=== PATIENT | female | born 1950 | race Caucasian/White ===

== ENCOUNTER → 2017-06-01 | Outpatient (CLI) | payer MEDICARE ==
[~2017-06-01] MED LIST: ASPI325T; LISINOPRIL/HCTZ; MAGN500T2; PRAV40TA; PROPOXACET N; THERGRAN
[2017-06-01 09:43] LABS: MEAN CORPUSCULAR HEMOGLOBIN 28.7 pg (27.0-33.0); MEAN CORPUSCULAR HGB CONC 32.9 g/dl (32.0-36.5); MEAN CORPUSCULAR VOLUME 87.1 fl (80.0-96.0); RED CELL DISTRIBUTION WIDTH 13.3 % (11.5-14.5); WHITE BLOOD COUNT 11.2 10^3/uL (4.0-10.0)
[2017-06-01 10:17] LABS: ALBUMIN/GLOBULIN RATIO 1.18 (1.00-1.93); ALKALINE PHOSPHATASE 93 U/L (45-117); ALT/SGPT 20 U/L (12-78); ANION GAP 7 MEQ/L (8-16); AST/SGOT 13 U/L (15-37); BILIRUBIN,TOTAL 0.7 MG/DL (0.2-1.0); BLOOD UREA NITROGEN 13 MG/DL (7-18); CALCIUM LEVEL 9.9 MG/DL (8.8-10.2); CARBON DIOXIDE LEVEL 25 MEQ/L (21-32); CHLORIDE LEVEL 111 MEQ/L (98-107); CHOLESTEROL LEVEL 120 MG/DL (<200); CREATININE FOR GFR 0.75 MG/DL (0.55-1.02); GLOMERULAR FILTRATION RATE > 60.0 (>45); GLUCOSE, FASTING 106 MG/DL (80-110); POTASSIUM SERUM 4.4 MEQ/L (3.5-5.1); SODIUM LEVEL 143 MEQ/L (136-145); TOTAL PROTEIN 7.4 GM/DL (6.4-8.2); TRIGLYCERIDES LEVEL 108 MG/DL (<150)
--- NOTE | 2017-06-01 11:24 | REP ---
PA and lateral chest: Comparison is 05/26/2009. The lung smith are clear. The cardiac size is normal The patricio, mediastinum, and bony thorax are unremarkable. There is a spinal stimulator at the mid thoracic level. This appears to be a different stimulator than the one present previously. There are surgical clips in the abdominal right upper quadrant, unchanged. Impression: Negative PA and lateral chest. Signed by Anatoly Garnett MD 06/01/2017 11:15 A
--- NOTE | 2017-06-01 23:27 | ECGEPIP ---
Stationary ECG Study [facility] Test Date: 2017-06-01 Pat Name: MICHELE LYNN Department: Room: - Gender: F Member Of Technical Staff: CHRISTINE : 1950 Requested By: Oz Rossi Order Number: [id number] Reading MD: Derick Dickerson Measurements Intervals [place] Rate: 79 P: 14 ME: 150 QRS: -43 QRSD: 85 T: 15 QT: 370 QTc: 426 Interpretive Statements SINUS RHYTHM MARKED LEFT AXIS DEVIATION PATTERN CONSISTENT WITH PULMONARY DISEASE NONSPECIFIC ST-T ABNORMALITY NO PRIOR TRACING IN THE SYSTEM Electronically Signed On 06-01-2017 23:26:50 EDT by Derick Dickerson
== END ==
LOC: M LAB 08:53
PROVIDERS: ATTEND Family Medicine
DX: I10 Essential (primary) hypertension (principal)

== ENCOUNTER → 2017-08-13 | Outpatient (CLI) | payer MEDICARE ==
--- NOTE | 2017-08-13 15:55 | REP ---
Skull series: Five views: History: Head injury. Findings: Five views of the calvarium demonstrate no evidence of fracture or opaque foreign body. Hyperostosis frontalis interna is noted incidentally. This is a normal variant. The maxilla is edentulous. No facial fractures seen. Orbital margins are intact. Impression: Unremarkable skull series. Signed by Avelino Raya MD 08/13/2017 05:07 P
--- NOTE | 2017-08-13 15:57 | REP ---
Right shoulder series: Three views: History: Right shoulder pain. Findings: There is moderate glenohumeral spurring on the inferior articular margin of the humeral head and glenoid. Glenohumeral articulation is normally aligned. AC joint is normally aligned. Periarticular soft tissues are unremarkable. There is some diffuse osteopenia. Impression: Glenohumeral osteoarthritis and diffuse osteopenia. Otherwise negative. Signed by Avelino Raya MD 08/13/2017 05:08 P
== END ==
LOC: M RAD 14:16
PROVIDERS: ATTEND Family Medicine
DX: S09.90XA Unspecified injury of head, initial encounter (principal); M25.511 Pain in right shoulder; X58.XXXA Exposure to other specified factors, initial encounter; Y92.89 Other specified places as the place of occurrence of the external cause; Y93.89 Activity, other specified; Y99.8 Other external cause status

== ENCOUNTER → 2017-09-10 | Outpatient (CLI) | payer MEDICARE | LOC: M RAD 08:10 | DX: M54.5 Low back pain (principal) | CPT/HCPCS: 72110 ==

== ENCOUNTER → 2018-01-30 | Outpatient (CLI) | payer MEDICARE ==
[2018-01-30 09:23] LABS: HEMATOCRIT 34.9 % (36.0-47.0); HEMOGLOBIN 11.4 g/dl (12.0-15.5); MEAN CORPUSCULAR HEMOGLOBIN 29.3 pg (27.0-33.0); MEAN CORPUSCULAR HGB CONC 32.7 g/dl (32.0-36.5); MEAN CORPUSCULAR VOLUME 89.7 fl (80.0-96.0); PLATELET COUNT, AUTOMATED 224 10^3/uL (150-450); RED BLOOD COUNT 3.89 10^6/uL (4.00-5.40); RED CELL DISTRIBUTION WIDTH 12.5 % (11.5-14.5); WHITE BLOOD COUNT 9.4 10^3/uL (4.0-10.0)
[2018-01-30 09:42] LABS: ESTIMATED AVERAGE GLUCOSE 114 MG/DL (60-110); HEMOGLOBIN A1c 5.6 %; INR 1.03; PROTHROMBIN TIME 13.6 SECONDS (12.4-14.5)
[2018-01-30 09:58] LABS: ALBUMIN 4.6 GM/DL (3.2-5.2); ALBUMIN/GLOBULIN RATIO 1.48 (1.00-1.93); ALKALINE PHOSPHATASE 109 U/L (45-117); ALT/SGPT 18 U/L (12-78); ANION GAP 8 MEQ/L (8-16); AST/SGOT 13 U/L (7-37); BILIRUBIN,TOTAL 0.7 MG/DL (0.2-1.0); BLOOD UREA NITROGEN 56 MG/DL (7-18); CALCIUM LEVEL 9.6 MG/DL (8.8-10.2); CARBON DIOXIDE LEVEL 25 MEQ/L (21-32); CHLORIDE LEVEL 109 MEQ/L (98-107); CHOLESTEROL LEVEL 173 MG/DL (<200); CHOLESTEROL RISK RATIO 5.088 (<5); CREATININE FOR GFR 1.54 MG/DL (0.55-1.30); GLOMERULAR FILTRATION RATE 35.6 (>45); GLUCOSE, FASTING 96 MG/DL (70-100); HDL CHOLESTEROL 34 MG/DL (>40); LDL CHOLESTEROL 77.6 MG/DL (<100); NON-HDL-C 139 MG/DL; POTASSIUM SERUM 5.1 MEQ/L (3.5-5.1); SODIUM LEVEL 142 MEQ/L (136-145); TOTAL PROTEIN 7.7 GM/DL (6.4-8.2); TRIGLYCERIDES LEVEL 307 MG/DL (<150)
== END ==
LOC: M LAB 08:43
DX: I10 Essential (primary) hypertension (principal); R53.83 Other fatigue; E03.9 Hypothyroidism, unspecified
CPT/HCPCS: 71046

== ENCOUNTER → 2018-04-04 | Outpatient (CLI) | payer MEDICARE ==
[2018-04-04 08:44] LABS: HEMOGLOBIN 11.4 g/dl (12.0-15.5); MEAN CORPUSCULAR HEMOGLOBIN 29.5 pg (27.0-33.0); MEAN CORPUSCULAR HGB CONC 32.6 g/dl (32.0-36.5); MEAN CORPUSCULAR VOLUME 90.4 fl (80.0-96.0); PLATELET COUNT, AUTOMATED 243 10^3/uL (150-450); RED BLOOD COUNT 3.87 10^6/uL (4.00-5.40); RED CELL DISTRIBUTION WIDTH 12.2 % (11.5-14.5)
[2018-04-04 08:55] LABS: INR 1.05; PROTHROMBIN TIME 13.8 SECONDS (12.1-14.4)
[2018-04-04 09:12] LABS: ESTIMATED AVERAGE GLUCOSE 126 MG/DL (60-110)
[2018-04-04 09:18] LABS: ALBUMIN 4.1 GM/DL (3.2-5.2); ALBUMIN/GLOBULIN RATIO 1.17 (1.00-1.93); ALKALINE PHOSPHATASE 108 U/L (45-117); ALT/SGPT 23 U/L (12-78); ANION GAP 10 MEQ/L (8-16); AST/SGOT 11 U/L (7-37); BILIRUBIN,TOTAL 0.7 MG/DL (0.2-1.0); BLOOD UREA NITROGEN 48 MG/DL (7-18); CALCIUM LEVEL 9.3 MG/DL (8.8-10.2); CARBON DIOXIDE LEVEL 24 MEQ/L (21-32); CHLORIDE LEVEL 108 MEQ/L (98-107); CHOLESTEROL LEVEL 155 MG/DL (<200); CHOLESTEROL RISK RATIO 4.558 (<5); CREATININE FOR GFR 1.67 MG/DL (0.55-1.30); GLOMERULAR FILTRATION RATE 32.4 (>45); GLUCOSE, FASTING 111 MG/DL (70-100); HDL CHOLESTEROL 34 MG/DL (>40); NON-HDL-C 121 MG/DL; POTASSIUM SERUM 4.8 MEQ/L (3.5-5.1); SODIUM LEVEL 142 MEQ/L (136-145); TOTAL PROTEIN 7.6 GM/DL (6.4-8.2); TRIGLYCERIDES LEVEL 300 MG/DL (<150)
== END ==
LOC: M LAB 08:20
DX: Z01.812 Encounter for preprocedural laboratory examination (principal); I10 Essential (primary) hypertension; R53.83 Other fatigue
CPT/HCPCS: 84443

== ENCOUNTER → 2018-05-20 | Outpatient (CLI) | payer MEDICARE | LOC: M EKG 10:18 | DX: Z01.818 Encounter for other preprocedural examination (principal) | CPT/HCPCS: 71046 ==

== ENCOUNTER → 2018-12-27 | Outpatient (CLI) | payer MEDICARE ==
[2018-12-27 08:31] LABS: HEMOGLOBIN 10.8 g/dl (12.0-15.5); MEAN CORPUSCULAR HEMOGLOBIN 28.7 pg (27.0-33.0); MEAN CORPUSCULAR HGB CONC 31.8 g/dl (32.0-36.5); MEAN CORPUSCULAR VOLUME 90.4 fl (80.0-96.0); PLATELET COUNT, AUTOMATED 270 10^3/uL (150-450); RED BLOOD COUNT 3.76 10^6/uL (4.00-5.40); WHITE BLOOD COUNT 9.9 10^3/uL (4.0-10.0)
[2018-12-27 08:56] LABS: ALBUMIN 4.2 GM/DL (3.2-5.2); BILIRUBIN,TOTAL 0.6 MG/DL (0.2-1.0); CALCIUM LEVEL 9.1 MG/DL (8.8-10.2); CHOLESTEROL RISK RATIO 4.935 (<5); CREATININE FOR GFR 1.67 MG/DL (0.55-1.30); GLOMERULAR FILTRATION RATE 32.3 (>39); POTASSIUM SERUM 4.7 MEQ/L (3.5-5.1); THYROID STIMULATING HORMONE 1.8 uIU/ML (0.358-3.740); TOTAL PROTEIN 7.2 GM/DL (6.4-8.2)
[2018-12-27 09:17] LABS: INR 1.11; PROTHROMBIN TIME 14.4 SECONDS (12.1-14.4)
--- NOTE | 2018-12-27 09:39 | REP ---
Chest x-ray: Two views. History: Hypertension. Preop. Comparison study: May 20, 2018. Findings: A dorsal column stimulator lead is again noted in the mid thoracic spine unchanged. The lungs are well inflated and clear. Pleural angles are sharp. Heart size is normal. Pulmonary vasculature is not increased. There are surgical clips in right upper quadrant of the abdomen. Minimal degenerative changes are seen in the thoracic spine. Impression: No active disease. Dorsal column stimulator in the mid thoracic spine. Electronically Signed by Avelino Raya MD 12/27/2018 09:31 A
[2018-12-27 09:42] LABS: APPEARANCE, URINE HAZY (CLEAR); BACTERIA, URINE AUTO 3+ (NEGATIVE); BILIRUBIN, URINE AUTO NEGATIVE (NEGATIVE); BLOOD, URINE BLOOD NEGATIVE (NEGATIVE); COLOR, URINE YELLOW (YELLOW); GLUCOSE, URINE (UA) AUTO NEGATIVE (NEGATIVE); KETONE, URINE AUTO NEGATIVE (NEGATIVE); LEUKOCYTE ESTERASE, URINE AUTO 3+ (NEGATIVE); MUCUS, URINE SMALL (NEGATIVE); NITRITE, URINE AUTO NEGATIVE (NEGATIVE); PROTEIN, URINE AUTO NEGATIVE (NEGATIVE); RBC, URINE AUTO 5 /HPF (0-3); SPECIFIC GRAVITY URINE AUTO 1.016 (1.002-1.035); SQUAMOUS EPITHELIAL CELL UR AU 0 /HPF (0-6); UROBILINOGEN, URINE AUTO 0.2 mg/dL (0.0-2.0); WBC, URINE AUTO 56 /HPF (0-3)
--- NOTE | 2018-12-28 12:07 | ECGEPIP ---
Stationary ECG Study [facility] Test Date: 2018-12-27 Pat Name: MICHELE LYNN Department: Room: - Gender: F Facility Coordinator: YULIYA : 1950 Requested By: Oz Rossi Order Number: [id number] Reading MD: Fernando Vaughn Measurements Intervals [place] Rate: 70 P: 7 PA: 169 QRS: -42 QRSD: 87 T: 8 QT: 389 QTc: 421 Interpretive Statements SINUS RHYTHM Left axis deviation Nonspecific T wave abnormality Similar to tracing done 05-20-18 Electronically Signed On 12-28-2018 12:07:51 EDT by Fernando Vaughn
== END ==
LOC: M LAB 07:56
PROVIDERS: ATTEND Family Medicine
DX: Z01.812 Encounter for preprocedural laboratory examination (principal); I10 Essential (primary) hypertension; Z96.9 Presence of functional implant, unspecified; Z51.81 Encounter for therapeutic drug level monitoring

== ENCOUNTER → 2019-01-16 | Outpatient (REF) ==
[2019-01-16 08:05] LABS: HEMATOCRIT 25.1 % (36.0-47.0); MEAN CORPUSCULAR HEMOGLOBIN 29.3 pg (27.0-33.0); MEAN CORPUSCULAR HGB CONC 31.9 g/dl (32.0-36.5); MEAN CORPUSCULAR VOLUME 91.9 fl (80.0-96.0); PLATELET COUNT, AUTOMATED 298 10^3/uL (150-450); RED BLOOD COUNT 2.73 10^6/uL (4.00-5.40)
[2019-01-16 08:51] LABS: CALCIUM LEVEL 8.9 MG/DL (8.8-10.2); CREATININE FOR GFR 1.07 MG/DL (0.55-1.30); POTASSIUM SERUM 4.4 MEQ/L (3.5-5.1)
== END ==
LOC: SKLAB5 08:46
PROVIDERS: ATTEND Internal Medicine
DX: I10 Essential (primary) hypertension (principal); D64.9 Anemia, unspecified

== ENCOUNTER → 2019-01-20 | Outpatient (REF) ==
[2019-01-20 08:14] LABS: HEMATOCRIT 25.9 % (36.0-47.0); HEMOGLOBIN 8.1 g/dl (12.0-15.5); MEAN CORPUSCULAR HEMOGLOBIN 29.3 pg (27.0-33.0); MEAN CORPUSCULAR HGB CONC 31.3 g/dl (32.0-36.5); MEAN CORPUSCULAR VOLUME 93.8 fl (80.0-96.0); PLATELET COUNT, AUTOMATED 368 10^3/uL (150-450); RED BLOOD COUNT 2.76 10^6/uL (4.00-5.40)
== END ==
LOC: SKLAB5 09:26
PROVIDERS: ATTEND Internal Medicine
DX: D64.9 Anemia, unspecified (principal)

== ENCOUNTER 2019-07-23 09:05 | Emergency (ER) | payer MEDICARE ==
[~2019-07-23] VITALS: Ht 152.4 cm; Wt 75.0 kg
[2019-07-23] MEDS ORDERED: ACETAMINOPHEN TAB 650MG DOSE (2X325MG) PO ONE (09:30)
--- NOTE | 2019-07-23 10:32 | REP ---
Three views left shoulder: 07/23/2019. Indication: Left shoulder pain. Comparison: 12/27/2018. Findings: There is no acute fracture, subluxation or dislocation. Moderate glenohumeral spurring is noted inferiorly. No lytic or blastic lesions of the visualized osseous structures are present. Spinal stimulator is noted. The visualized lung is clear. Impression: No fracture or additional acute osseous abnormality detected. Electronically Signed by Jimmy Du DO 07/23/2019 10:23 A
[2019-07-23 10:57] VITALS: BP 142/74
== END 2019-07-23 11:02 | disposition home or self-care (01) ==
LOC: M ED 09:05
DX: S40.012A Contusion of left shoulder, initial encounter (principal); S43.422A Sprain of left rotator cuff capsule, initial encounter; S46.812A Strain of other muscles, fascia and tendons at shoulder and upper arm level, left arm, initial encounter; W01.198A Fall on same level from slipping, tripping and stumbling with subsequent striking against other object, initial encounter; Y92.410 Unspecified street and highway as the place of occurrence of the external cause; I10 Essential (primary) hypertension; E78.5 Hyperlipidemia, unspecified; M54.9 Dorsalgia, unspecified; Z79.899 Other long term (current) drug therapy; Z79.82 Long term (current) use of aspirin

== ENCOUNTER → 2019-11-18 | Outpatient (CLI) | payer MEDICARE ==
[2019-11-18 09:17] LABS: HEMOGLOBIN 10.7 g/dl (12.0-15.5); MEAN CORPUSCULAR HEMOGLOBIN 28.3 pg (27.0-33.0); MEAN CORPUSCULAR HGB CONC 31.5 g/dl (32.0-36.5); MEAN CORPUSCULAR VOLUME 89.9 fl (80.0-96.0); PLATELET COUNT, AUTOMATED 241 10^3/uL (150-450); RED BLOOD COUNT 3.78 10^6/uL (4.00-5.40); WHITE BLOOD COUNT 8.4 10^3/uL (4.0-10.0)
[2019-11-18 09:28] LABS: INR 1.11
[2019-11-18 09:43] LABS: HEMOGLOBIN A1c 5.6 %
[2019-11-18 09:53] LABS: BILIRUBIN,TOTAL 0.7 MG/DL (0.2-1.0); CALCIUM LEVEL 9.2 MG/DL (8.8-10.2); CHOLESTEROL RISK RATIO 4.322 (<5); CREATININE FOR GFR 2.37 MG/DL (0.55-1.30); GLOMERULAR FILTRATION RATE 21.5 (>39); POTASSIUM SERUM 5.3 MEQ/L (3.5-5.1); THYROID STIMULATING HORMONE 2.18 uIU/ML (0.358-3.740); TOTAL PROTEIN 7.2 GM/DL (6.4-8.2)
--- NOTE | 2019-11-18 10:03 | REP ---
CHEST X-RAY: Two views. HISTORY: Hypertension. COMPARISON CHEST X-RAY: December 27, 2018. FINDINGS: A dorsal column stimulator is seen in the mid thoracic spine. There are surgical clips in right upper quadrant. The lungs are symmetrically aerated and clear. Heart is not enlarged. Pulmonary vasculature is not increased. There are mild degenerative changes in the thoracic spine. IMPRESSION: Dorsal column stimulator in the mid thoracic spine. Otherwise no acute disease. Electronically Signed by Avelino Raya MD 11/18/2019 10:56 A
--- NOTE | 2019-11-20 18:06 | ECGEPIP ---
[facility] Test Date: 2019-11-18 Pat Name: MICHELE LYNN Department: Room: - Gender: Female Director Information: YULIYA : 1950 Requested By: Oz Rossi Order Number: [id number] Reading MD: Derick Dickerson Measurements Intervals [place] Rate: 70 P: 16 ID: 151 QRS: -38 QRSD: 88 T: 6 QT: 390 QTc: 422 Interpretive Statements SINUS RHYTHM MARKED LEFT AXIS DEVIATION. CONSIDER PRIOR INFERO-POSTERIOR INFARCT MODERATE T-WAVE ABNORMALITY, CONSIDER ANTERIOR ISCHEMIA Last tracing on 12/27/18 AT 8:46 No remarkable changes Electronically Signed on 11-20-2019 18:06:43 EDT by Derick Dickerson
== END ==
LOC: M LAB 08:37
PROVIDERS: ATTEND Family Medicine
DX: Z01.818 Encounter for other preprocedural examination (principal); E07.9 Disorder of thyroid, unspecified; E78.00 Pure hypercholesterolemia, unspecified; Z79.01 Long term (current) use of anticoagulants

== ENCOUNTER → 2020-02-03 | Outpatient (CLI) | payer MEDICARE ==
[2020-02-03 09:15] LABS: PLATELET COUNT, AUTOMATED 313 10^3/uL (150-450)
[2020-02-03 09:24] LABS: INR 1.14; PROTHROMBIN TIME 14.3 SECONDS (11.8-14.0)
[2020-02-03 09:25] LABS: PARTIAL THROMBOPLASTIN TIME 30.2 SECONDS (25.0-38.4)
[2020-02-03 09:32] LABS: COLLAGEN EPINEPHRINE 105 SECONDS (74-162)
[2020-02-03 09:36] LABS: CREATININE FOR GFR 2.08 MG/DL (0.55-1.30)
== END ==
LOC: M LAB 08:11
PROVIDERS: ATTEND Physical Medicine & Rehabilitation
DX: Z01.812 Encounter for preprocedural laboratory examination (principal); M47.27 Other spondylosis with radiculopathy, lumbosacral region

== ENCOUNTER → 2020-02-24 | Outpatient (CLI) | payer MEDICARE ==
[~2020-02-24] MED LIST changes: +ASPI81TA85 PO; +ATOR80TA59 PO; +CYAN500T8 PO; +FURO40TA2 PO; +LISI40TA PO; +METO200T28 PO; +TRAM1CAP15 PO; +VITAD1000T PO
--- NOTE | 2020-02-24 08:11 | REP ---
Chest x-ray: Two views. History: Annual. Comparison study: November 18, 2019. Findings: A dorsal column stimulator lead is again noted in place in the thoracic spinal column. There are clips in right upper quadrant. Minimal degenerative changes are seen in the thoracic spine. The lungs are well inflated and clear. Pleural angles are sharp. Heart is not enlarged. Pulmonary vasculature is not increased. Osteoarthritic changes are seen in the shoulders bilaterally. Impression: No active cardiopulmonary disease. Electronically Signed by Avelino Raay MD 02/24/2020 08:02 A
[2020-02-24 08:27] LABS: HEMATOCRIT 31.5 % (36.0-47.0); MEAN CORPUSCULAR HEMOGLOBIN 28.6 pg (27.0-33.0); MEAN CORPUSCULAR HGB CONC 31.7 g/dl (32.0-36.5); PLATELET COUNT, AUTOMATED 225 10^3/uL (150-450); WHITE BLOOD COUNT 8.1 10^3/uL (4.0-10.0)
[2020-02-24 08:37] LABS: INR 1.07; PROTHROMBIN TIME 13.6 SECONDS (11.8-14.0)
[2020-02-24 09:01] LABS: ALBUMIN 3.9 GM/DL (3.2-5.2); BILIRUBIN,TOTAL 0.7 MG/DL (0.2-1.0); CALCIUM LEVEL 9.1 MG/DL (8.8-10.2); CHOLESTEROL RISK RATIO 5.085 (<5); CREATININE FOR GFR 1.48 MG/DL (0.55-1.30); POTASSIUM SERUM 5.3 MEQ/L (3.5-5.1); THYROID STIMULATING HORMONE 3.07 uIU/ML (0.358-3.740); TOTAL PROTEIN 7.2 GM/DL (6.4-8.2)
[2020-02-24 10:26] LABS: HEMOGLOBIN A1c 6.1 %
--- NOTE | 2020-02-26 18:18 | ECGEPIP ---
[facility] Test Date: 2020-02-24 Pat Name: MICHELE LYNN Department: Room: - Gender: Female Pet Care Worker: EDELMIRA : 1950 Requested By: Oz Rossi Order Number: [id number] Reading MD: Derick Dickerson Measurements Intervals [place] Rate: 74 P: 10 MI: 146 QRS: -39 QRSD: 90 T: 25 QT: 378 QTc: 420 Interpretive Statements SINUS RHYTHM MARKED LEFT AXIS DEVIATION PATTERN CONSISTENT WITH PULMONARY DISEASE. CONSIDER PRIOR INFERIOR INFARCT MODERATE T-WAVE ABNORMALITY, CONSIDER ANTERIOR ISCHEMIA Compared to prior tracings(4) in the system, no significant changes Electronically Signed on 02-26-2020 18:18:01 EDT by Derick Dickerson
== END ==
LOC: M LAB 07:27
PROVIDERS: ATTEND Family Medicine
DX: Z01.818 Encounter for other preprocedural examination (principal); I10 Essential (primary) hypertension; E11.9 Type 2 diabetes mellitus without complications

== ENCOUNTER → 2020-03-04 | Outpatient (CLI) | payer MEDICARE | LOC: M LABSMTC 10:21 | PROVIDERS: ATTEND Physician Assistant | DX: Z03.818 Encounter for observation for suspected exposure to other biological agents ruled out (principal); Z11.59 Encounter for screening for other viral diseases ==

== ENCOUNTER → 2020-03-12 | Outpatient (CLI) | payer MEDICARE ==
[~2020-03-12] MED LIST changes: -ASPI81TA85 PO; +ASPI81TA86 PO; +D31000TA2 PO; +E-Z-GAS II EFFERVESCENT PACKET (SODIUM BICARB./CITRIC ACID/SIMETHICONE) As Ordered ONE; +E-Z-HD 98% w/w 340GM SUSP BTL As Ordered ONE; +E-Z-PAQUE 96% w/w SUSP 176GM BTL As Ordered ONE; +GABA600T4 PO; +KLOR20TA42 PO; +OMEP-218 PO; -VITAD1000T PO
--- NOTE | 2020-03-14 23:49 | REP ---
Examination Requested: Upper G.I. Series With KUB Reason For Exam: Abdomen pain Upper GI Air Contrast The procedure was performed by SAGE Da Silva, under the direct supervision of Dr. Dobbins. The images were reviewed with Dr. Dobbins. The electrolysis engineer film shows no organomegaly or pathological masses. The intestinal gas pattern appears normal. There is a dorsal column stimulator. There is a fusion of L4 and L5. There are surgical clips in the right upper quadrant. Liquid barium and gas producing crystals were given in the erect position as well as liquid barium in the prone oblique position in order to perform a double contrast upper GI examination. The oral and pharyngeal stages of deglutition were unremarkable. Esophageal transport is efficient and there is no esophagitis, stricture, or mucosal ring noted. However tertiary waves were visualized during the exam There is hiatal hernia. Gastroesophageal reflux was not visualized during this exam. The stomach story are normally outlined. The rugal folds are smooth and regular. There is no gastritis, neoplasm, ulcer disease noted. The duodenal story are normally outlined. The mucosal folds are smooth and regular. There is no duodenitis, peptic ulcer disease, or neoplasm noted. The visualized portion of the proximal small bowel appears normal in course and caliber. Impression: 1. Tertiary waves were visualized during this exam. 2. Small hiatal hernia. 0.7 minutes of fluoroscopy time was utilized for this procedure. Some fluoroscopic images are performed with last image hold technology. These images require no additional radiation. Reviewed by SAGE Mcallister 03/12/2020 04:07 P Electronically Signed by Anatoly Dobbins MD 03/14/2020 11:40 P
== END ==
LOC: M RAD 07:47
PROVIDERS: ATTEND Family Medicine
DX: R10.13 Epigastric pain (principal); D64.9 Anemia, unspecified; K27.9 Peptic ulcer, site unspecified, unspecified as acute or chronic, without hemorrhage or perforation; K44.9 Diaphragmatic hernia without obstruction or gangrene

== ENCOUNTER → 2020-03-18 | Outpatient (CLI) | payer MEDICARE ==
[~2020-03-18] MED LIST changes: -E-Z-GAS II EFFERVESCENT PACKET (SODIUM BICARB./CITRIC ACID/SIMETHICONE) As Ordered ONE; -E-Z-HD 98% w/w 340GM SUSP BTL As Ordered ONE; -E-Z-PAQUE 96% w/w SUSP 176GM BTL As Ordered ONE
--- NOTE | 2020-03-18 10:41 | REPMRS ---
Patient History The patient states she has not had a clinical breast exam in over a year. Patient is postmenopausal. No known family history of cancer. 3D TOMOSYNTHESIS WAS PERFORMED. [facility] for [facility].3%. ALEXA Potts. Digital Woman Screen Mammo: March 18, 2020 - Exam #: [id number] Bilateral CC and MLO view(s) were taken. Technologist: Soraya Faria, Technologist FINDINGS: The breast tissue is heterogeneously dense. This may lower the sensitivity of mammography. There is a moderate amount of residual fibroglandular tissue which is fairly symmetric. There is no dominant mass, areas of architectural distortion, or clustered microcalcification typical of malignancy. Large coarse benign appearing calcifications are present. Assessment: BI-RADS/ACR category 1 mammogram. Negative Mammogram. Recommendation Routine screening mammogram in 1 year (for women over age 40). This mammogram was interpreted with the aid of an FDA-approved computer-aided dectection system. Electronically Signed By: Anatoly Dobbins MD 03/18/20 [id number]
== END ==
LOC: M WHC 09:08
PROVIDERS: ATTEND Family Medicine
DX: Z12.31 Encounter for screening mammogram for malignant neoplasm of breast (principal); Z78.0 Asymptomatic menopausal state

== ENCOUNTER 2020-04-21 06:58 | Day surgery (SDC) | payer MEDICARE ==
[~2020-04-21] VITALS: Ht 152.4 cm; Wt 86.7 kg
[~2020-04-21 06:58] MED LIST changes: -GABA600T4 PO; -KLOR20TA42 PO; -OMEP-218 PO
[2020-04-21] MEDS ORDERED: NS 1,000 ML IV ONE (07:30)
[2020-04-21] MEDS ORDERED: KLOR20TA42 PO (07:55)
[2020-04-21] MEDS ORDERED: OMEP-218 PO (07:55)
[2020-04-21] MEDS ORDERED: GABA600T4 PO (07:55)
[2020-04-21] MEDS ORDERED: LIDOCAINE 2% 100MG/5ML SDV (FOR ANES.) As Ordered ONE (08:02)
[2020-04-21] MEDS ORDERED: propofoL 200 MG/20 ML VIAL As Ordered ONE ×2 (08:02→08:38)
[2020-04-21 08:45] VITALS: BP 117/55
--- NOTE | 2020-06-28 14:00 | ROOR ---
THIS EXAM WAS SENT IN ERROR
--- NOTE | 2020-06-28 14:01 | ROOR ---
THIS EXAM WAS SENT IN ERROR
--- NOTE | 2020-06-28 14:01 | ROOR ---
Patient Name: Wagner Benjamin Procedure Date: 04/21/2020 7:31 AM Date of : 1950 Age: 69 Room: [facility] Gender: Female Note Status: Heel Brusher Override Procedure: Upper Endoscopy + Biopsies Indications: Iron deficiency anemia, Unexplained iron deficiency anemia Providers: Levy Hewitt MD Referring MD: KAMRYN KASPER MD Requesting Provider: Medicines: Monitored Anesthesia Care Complications: No immediate complications. Procedure: Pre-Anesthesia Assessment: - The heart rate, respiratory rate, oxygen saturations, blood pressure, adequacy of pulmonary ventilation, and response to care were monitored throughout the procedure. The Endoscope was introduced through the mouth, and advanced to the second part of duodenum. The upper GI endoscopy was accomplished without difficulty. The patient tolerated the procedure well. Findings: The Z-line was variable and was found 40 cm from the incisors. Diffuse mildly erythematous mucosa without bleeding was found in the gastric antrum. Biopsies were taken with a cold forceps for Helicobacter pylori testing. The exam of the duodenum was otherwise normal. Biopsies for histology were taken with a cold forceps in the first portion of the duodenum for evaluation of celiac disease. The exam was otherwise without abnormality. Impression: - Z-line variable, 40 cm from the incisors. - Erythematous mucosa in the antrum. Biopsied. - The examination was otherwise normal. - Biopsies were taken with a cold forceps for evaluation of celiac disease. - The examination was otherwise normal. Recommendation: - Patient has a contact number available for emergencies. The signs and symptoms of potential delayed complications were discussed with the patient. Return to normal activities tomorrow. Written discharge instructions were provided to the patient. - High fiber diet. - Discharge patient to home. - Follow an antireflux regimen. - Continue present medications. - Await pathology results. - Telephone GI clinic for pathology results in 1 week. - Return to referring physician. - Repeat upper endoscopy for surveillance based on pathology results. - The findings and recommendations were discussed with the patient. Levy Hewitt MD Levy Hewitt MD 04/21/2020 8:14:13 AM Number of Addenda: 0 Note Initiated On: 04/21/2020 7:31 AM Estimated Blood Loss: Estimated blood loss: none.
--- NOTE | 2020-06-28 14:01 | ROOR ---
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 Procedure: Pre-Anesthesia Assessment: - The heart rate, respiratory rate, oxygen saturations, blood pressure, adequacy of pulmonary ventilation, and response to care were monitored throughout the procedure. The Colonoscope was introduced through the anus and advanced to the cecum, identified by appendiceal orifice and ileocecal valve. The colonoscopy was performed without difficulty. The patient tolerated the procedure well. The quality of the bowel preparation was good. Findings: The perianal and digital rectal examinations were normal. Non-bleeding internal hemorrhoids were found during retroflexion. The hemorrhoids were small and Grade I (internal hemorrhoids that do not prolapse). No other significant abnormalities were identified in a careful examination of the remainder of the colon. The exam was otherwise without abnormality on direct and retroflexion views. Impression: - Non-bleeding internal hemorrhoids. - The examination was otherwise normal on direct and retroflexion views. - No specimens collected. - The exam was otherwise normal to the cecum. Recommendation: - Patient has a contact number available for emergencies. The signs and symptoms of potential delayed complications were discussed with the patient. Return to normal activities tomorrow. Written discharge instructions were provided to the patient. - High fiber diet. - Discharge patient to home. - Continue present medications. - Repeat colonoscopy for symptoms only. - Return to referring physician. - The findings and recommendations were discussed with the patient. Levy Hewitt MD Levy Hewitt MD 04/21/2020 8:27:44 AM Electronically signed by Levy Hewitt MD Number of Addenda: 0 Note Initiated On: 04/21/2020 7:32 AM Estimated Blood Loss: Estimated blood loss: none.
--- NOTE | 2020-06-28 14:01 | ROOR ---
Patient Name: Wagner Benjamin Procedure Date: 04/21/2020 7:32 AM Date of : 1950 Age: 69 Room: [facility] Gender: Female Note Status: Claims Director Override Procedure: Total Colonoscopy to Cecum Indications: Unexplained iron deficiency anemia Providers: Levy Hewitt MD Referring MD: KAMRYN KASPER MD Requesting Provider: Medicines: Monitored Anesthesia Care Complications: No immediate complications. Procedure: Pre-Anesthesia Assessment: - The heart rate, respiratory rate, oxygen saturations, blood pressure, adequacy of pulmonary ventilation, and response to care were monitored throughout the procedure. The Colonoscope was introduced through the anus and advanced to the cecum, identified by appendiceal orifice and ileocecal valve. The colonoscopy was performed without difficulty. The patient tolerated the procedure well. The quality of the bowel preparation was good. Findings: The perianal and digital rectal examinations were normal. Non-bleeding internal hemorrhoids were found during retroflexion. The hemorrhoids were small and Grade I (internal hemorrhoids that do not prolapse). No other significant abnormalities were identified in a careful examination of the remainder of the colon. The exam was otherwise without abnormality on direct and retroflexion views. Impression: - Non-bleeding internal hemorrhoids. - The examination was otherwise normal on direct and retroflexion views. - No specimens collected. - The exam was otherwise normal to the cecum. Recommendation: - Patient has a contact number available for emergencies. The signs and symptoms of potential delayed complications were discussed with the patient. Return to normal activities tomorrow. Written discharge instructions were provided to the patient. - High fiber diet. - Discharge patient to home. - Continue present medications. - Repeat colonoscopy for symptoms only. - Return to referring physician. - The findings and recommendations were discussed with the patient. Levy Hewitt MD Levy Hewitt MD 04/21/2020 8:27:44 AM Electronically signed by Levy Hewitt MD Number of Addenda: 0 Note Initiated On: 04/21/2020 7:32 AM Estimated Blood Loss: Estimated blood loss: none.
== END 2020-04-21 08:58 | disposition home or self-care (01) ==
LOC: M OPP 06:58
PROVIDERS: ATTEND Internal Medicine Gastroenterology
DX: K64.0 First degree hemorrhoids (principal); D64.9 Anemia, unspecified; K22.8 Other specified diseases of esophagus; K31.89 Other diseases of stomach and duodenum; I10 Essential (primary) hypertension; Z79.899 Other long term (current) drug therapy

== ENCOUNTER → 2020-05-20 | Outpatient (CLI) | payer MEDICARE ==
[~2020-05-20] MED LIST changes: +GABA600T4 PO; +KLOR20TA42 PO; +OMEP-218 PO
== END ==
LOC: M LAB 07:51
PROVIDERS: ATTEND Internal Medicine Gastroenterology
DX: D64.9 Anemia, unspecified (principal)

== ENCOUNTER → 2020-06-02 | Outpatient (CLI) | payer MEDICARE | LOC: M LABSMTC 09:31 | PROVIDERS: ATTEND Physical Medicine & Rehabilitation | DX: Z01.812 Encounter for preprocedural laboratory examination (principal); Z20.828 Contact with and (suspected) exposure to other viral communicable diseases ==

== ENCOUNTER → 2020-08-19 | Outpatient (CLI) | payer MEDICARE ==
[~2020-08-19] MED LIST changes: +CYAN500T14 PO; -CYAN500T8 PO
[2020-08-19 09:05] LABS: HEMATOCRIT 33.8 % (36.0-47.0); HEMOGLOBIN 10.1 g/dl (12.0-15.5); MEAN CORPUSCULAR HEMOGLOBIN 26.4 pg (27.0-33.0); MEAN CORPUSCULAR HGB CONC 29.9 g/dl (32.0-36.5); MEAN CORPUSCULAR VOLUME 88.3 fl (80.0-96.0); PLATELET COUNT, AUTOMATED 331 10^3/uL (150-450); RED BLOOD COUNT 3.83 10^6/uL (4.00-5.40); WHITE BLOOD COUNT 6.3 10^3/uL (4.0-10.0)
[2020-08-19 09:34] LABS: ALBUMIN 3.8 GM/DL (3.2-5.2); BILIRUBIN,TOTAL 0.6 MG/DL (0.2-1.0); CHOLESTEROL RISK RATIO 5.962 (<5); CREATININE FOR GFR 1.82 MG/DL (0.55-1.30); GLOMERULAR FILTRATION RATE 29.2 (>39); POTASSIUM SERUM 5.2 MEQ/L (3.5-5.1); THYROID STIMULATING HORMONE 3.44 uIU/ML (0.358-3.740)
[2020-08-19 09:50] LABS: TOTAL 25(OH) VITAMIN D 25.2 NG/ML (30.0-100.0)
[2020-08-19 09:53] LABS: HEMOGLOBIN A1c 5.9 %
== END ==
LOC: M LAB 08:00
PROVIDERS: ATTEND Family Medicine
DX: E03.9 Hypothyroidism, unspecified (principal); R53.83 Other fatigue; Z79.899 Other long term (current) drug therapy

== ENCOUNTER → 2021-04-04 | Outpatient (CLI) | payer MEDICARE ==
[~2021-04-04] MED LIST changes: -LISI40TA PO; +LISI40TA4 PO
[2021-04-04 09:30] LABS: INR 1.08; PROTHROMBIN TIME 14.4 SECONDS (12.7-14.5)
[2021-04-04 09:31] LABS: PARTIAL THROMBOPLASTIN TIME 27.4 SECONDS (25.9-37.0)
[2021-04-04 09:33] LABS: COLLAGEN EPINEPHRINE 126 SECONDS (74-162); PLATELET COUNT, AUTOMATED 304 10^3/uL (150-450)
== END ==
LOC: M LAB 08:42
PROVIDERS: ATTEND Physician Assistant
DX: M47.27 Other spondylosis with radiculopathy, lumbosacral region (principal)

== ENCOUNTER → 2021-04-20 | Outpatient (CLI) | payer MEDICARE ==
[2021-04-20 08:17] LABS: HEMATOCRIT 29.8 % (36.0-47.0); MEAN CORPUSCULAR HEMOGLOBIN 25.7 pg (27.0-33.0); MEAN CORPUSCULAR HGB CONC 30.2 g/dl (32.0-36.5); MEAN CORPUSCULAR VOLUME 85.1 fl (80.0-96.0); PLATELET COUNT, AUTOMATED 274 10^3/uL (150-450); WHITE BLOOD COUNT 8.3 10^3/uL (4.0-10.0)
[2021-04-20 08:52] LABS: ALBUMIN 3.7 GM/DL (3.2-5.2); BILIRUBIN,TOTAL 0.6 MG/DL (0.2-1.0); CALCIUM LEVEL 8.8 MG/DL (8.8-10.2); CHOLESTEROL RISK RATIO 4.225 (<5); CREATININE FOR GFR 1.41 MG/DL (0.55-1.30); POTASSIUM SERUM 4.5 MEQ/L (3.5-5.1); THYROID STIMULATING HORMONE 0.649 uIU/ML (0.358-3.740); TOTAL PROTEIN 6.5 GM/DL (6.4-8.2)
[2021-04-20 09:07] LABS: TOTAL 25(OH) VITAMIN D 33.4 NG/ML (30.0-100.0)
== END ==
LOC: M LAB 07:26
PROVIDERS: ATTEND Family Medicine
DX: I10 Essential (primary) hypertension (principal)

== ENCOUNTER → 2021-05-20 | Outpatient (CLI) | payer MEDICARE ==
[~2021-05-20] MED LIST changes: -KLOR20TA42 PO; +POTA-141 PO
[2021-05-20 09:40] LABS: HEMATOCRIT 29.2 % (36.0-47.0); HEMOGLOBIN 8.7 g/dl (12.0-15.5); MEAN CORPUSCULAR HEMOGLOBIN 24.4 pg (27.0-33.0); MEAN CORPUSCULAR HGB CONC 29.8 g/dl (32.0-36.5); PLATELET COUNT, AUTOMATED 325 10^3/uL (150-450); RED BLOOD COUNT 3.56 10^6/uL (4.00-5.40); WHITE BLOOD COUNT 10.6 10^3/uL (4.0-10.0)
--- NOTE | 2021-05-20 09:40 | REP ---
INDICATION: HTN *LABS 1ST, EKG 2ND, XRY 3RD*. COMPARISON: 02/24/2020 TECHNIQUE: PA and lateral FINDINGS: The superior mediastinal structures are midline. The cardiac silhouette is unremarkable in size, shape, and position. The diaphragmatic surfaces of the lungs are regular, and the costophrenic angles are clear. The pulmonary smith are clear. The imaged osseous structures are intact. IMPRESSION: There is no acute cardiopulmonary disease. No change from the prior exam <Electronically signed by Benedict Davila > 05/20/21 0919
[2021-05-20 09:56] LABS: INR 1.04
[2021-05-20 10:15] LABS: ALBUMIN 3.5 GM/DL (3.2-5.2); BILIRUBIN,TOTAL 0.8 MG/DL (0.2-1.0); CALCIUM LEVEL 8.4 MG/DL (8.8-10.2); CHOLESTEROL RISK RATIO 5.451 (<5); CREATININE FOR GFR 1.76 MG/DL (0.55-1.30); GLOMERULAR FILTRATION RATE 30.2 (>39); POTASSIUM SERUM 5.3 MEQ/L (3.5-5.1); THYROID STIMULATING HORMONE 0.485 uIU/ML (0.358-3.740); TOTAL PROTEIN 6.7 GM/DL (6.4-8.2)
[2021-05-20 12:07] LABS: HEMOGLOBIN A1c 6.3 %
--- NOTE | 2021-05-20 19:20 | ECGEPIP ---
[facility] Test Date: 2021-05-20 Pat Name: MICHELE LYNN Department: Room: - Gender: Female Flight Test Engineer: magaly : 1950 Requested By: Oz Rossi Order Number: [id number] Reading MD: An Morgan Measurements Intervals [place] Rate: 71 P: 22 [place]: 116 QRS: -29 QRSD: 80 T: 22 QT: 408 QTc: 443 Interpretive Statements Normal sinus rhythm Left axis deviation ST & T wave abnormality, consider anterior ischemia No change compared to prior tracings (last 02/24/20) Electronically Signed on 05-20-2021 19:20:10 EDT by An Morgan
== END ==
LOC: M LAB 08:36
PROVIDERS: ATTEND Family Medicine
DX: Z01.818 Encounter for other preprocedural examination (principal); E11.9 Type 2 diabetes mellitus without complications; I10 Essential (primary) hypertension

== ENCOUNTER → 2021-06-06 | Outpatient (CLI) | payer MEDICARE ==
[~2021-06-06] MED LIST changes: +E-Z-GAS II EFFERVESCENT PACKET (SODIUM BICARB./CITRIC ACID/SIMETHICONE) As Ordered ONE; +E-Z-HD 98% w/w 340GM SUSP BTL As Ordered ONE; +E-Z-PAQUE 96% w/w SUSP 176GM BTL As Ordered ONE
--- NOTE | 2021-06-06 16:05 | REP ---
INDICATION: ANEMIA. COMPARISON: None. TECHNIQUE: The procedure was performed under the direct supervision of Dr. Raya. The images were reviewed with Dr. Raya. Liquid barium and gas producing crystals were given in the erect position as well as liquid barium in the prone oblique position in order to perform a double contrast upper GI examination. A combination of fluoroscopy, spot films and last image hold technology was utilized. 1.6 minutes of fluoro time was utilized for this procedure. FINDINGS: The back roll lathe operator film shows no organomegaly or pathological masses. The intestinal gas pattern is non-specific. There are surgical clips noted in the right upper quadrant. There is a fusion of L4 and L5. There is a dorsal column stimulator in place with the power pack overlying the left pelvis. The oral and pharyngeal stages of deglutition are unremarkable. During esophageal transport are tertiary waves demonstrated. There is no esophagitis, stricture, mucosal ring or hiatal hernia. Gastroesophageal reflux is not demonstrated on this examination. The stomach story are normally outlined. The rugal folds are smooth and regular. There is no gastritis neoplasm or ulcer disease. In the post bulbar duodenum there is deformity and narrowing with possible ulcers. The visualized portion of the proximal small bowel appears normal in course and caliber. IMPRESSION: 1. Tertiary waves. 2. Hiatal hernia. 3. In the post bulbar duodenum there is deformity and narrowing with possible ulcers. <Electronically signed by Kenroy Mancuso > 06/06/21 1549 <Electronically signed by Lucas Raya > 06/06/21 1606
== END ==
LOC: M RAD 07:20
PROVIDERS: ATTEND Family Medicine
DX: D64.9 Anemia, unspecified (principal); R10.9 Unspecified abdominal pain; K27.9 Peptic ulcer, site unspecified, unspecified as acute or chronic, without hemorrhage or perforation

== ENCOUNTER → 2021-07-08 | Outpatient (CLI) | payer MEDICARE ==
[~2021-07-08] MED LIST changes: -E-Z-GAS II EFFERVESCENT PACKET (SODIUM BICARB./CITRIC ACID/SIMETHICONE) As Ordered ONE; -E-Z-HD 98% w/w 340GM SUSP BTL As Ordered ONE; -E-Z-PAQUE 96% w/w SUSP 176GM BTL As Ordered ONE
[2021-07-08 10:22] LABS: HEMATOCRIT 31.7 % (36.0-47.0); HEMOGLOBIN 9.2 g/dl (12.0-15.5); MEAN CORPUSCULAR HEMOGLOBIN 23.4 pg (27.0-33.0); MEAN CORPUSCULAR VOLUME 80.7 fl (80.0-96.0); PLATELET COUNT, AUTOMATED 317 10^3/uL (150-450); RED BLOOD COUNT 3.93 10^6/uL (4.00-5.40); WHITE BLOOD COUNT 11.9 10^3/uL (4.0-10.0)
[2021-07-08 11:05] LABS: ALBUMIN 3.6 GM/DL (3.2-5.2); BILIRUBIN,TOTAL 0.4 MG/DL (0.2-1.0); CALCIUM LEVEL 9.1 MG/DL (8.8-10.2); CREATININE FOR GFR 1.63 MG/DL (0.55-1.30); PERCENT SATURATION 7.3 % (13.2-45.0); POTASSIUM SERUM 5.7 MEQ/L (3.5-5.1); THYROID STIMULATING HORMONE 0.911 uIU/ML (0.358-3.740); TOTAL PROTEIN 6.8 GM/DL (6.4-8.2)
[2021-07-08 11:19] LABS: HEMOGLOBIN A1c 5.9 %
== END ==
LOC: M LAB 09:38
PROVIDERS: ATTEND Family Medicine
DX: D64.9 Anemia, unspecified (principal)

== ENCOUNTER → 2021-07-30 | Outpatient (CLI) | payer MEDICARE ==
[~2021-07-30] MED LIST changes: +ASPI81TA26 PO; +METO1TAB7 PO
== END ==
LOC: M LABSMTC 09:22
PROVIDERS: ATTEND Anesthesiology
DX: Z11.52 Encounter for screening for COVID-19 (principal); Z20.828 Contact with and (suspected) exposure to other viral communicable diseases

== ENCOUNTER 2021-08-03 09:47 | Day surgery (SDC) | payer MEDICARE ==
[~2021-08-03] VITALS: Ht 152.4 cm; Wt 79.3 kg
[~2021-08-03 09:47] MED LIST changes: +NS 1,000 ML IV ONE; +OMEP-173 PO; -OMEP-218 PO
[2021-08-03] MEDS ORDERED: propofoL 200 MG/20 ML VIAL As Ordered ONE (10:01)
[2021-08-03] MEDS ORDERED: fentaNYL 100 MCG/2 ML INJECTION As Ordered ONE (10:01)
[2021-08-03] MEDS ORDERED: LIDOCAINE 2% 100MG/5ML SDV (FOR ANES.) As Ordered ONE (10:01)
[2021-08-03] MEDS ORDERED: hydrALAZINE 20MG/ML 1ML VIAL (J0360 PER 20MG) As Ordered ONE (11:30)
[2021-08-03 12:05] VITALS: BP 176/86
== END 2021-08-03 12:06 | disposition home or self-care (01) ==
LOC: M OPP 09:47
PROVIDERS: ATTEND Internal Medicine Gastroenterology
DX: D50.9 Iron deficiency anemia, unspecified (principal); R10.13 Epigastric pain; R93.3 Abnormal findings on diagnostic imaging of other parts of digestive tract; I10 Essential (primary) hypertension; E78.5 Hyperlipidemia, unspecified; Z79.82 Long term (current) use of aspirin; Z79.899 Other long term (current) drug therapy
CPT/HCPCS: 43239; 88305; J0360; J3010

== ENCOUNTER → 2021-08-05 | Outpatient (CLI) | payer MEDICARE ==
[~2021-08-05] MED LIST changes: -NS 1,000 ML IV ONE; -OMEP-173 PO; +OMEP-218 PO
== END ==
LOC: M LABSMTC 08:58
PROVIDERS: ATTEND Anesthesiology
DX: Z01.812 Encounter for preprocedural laboratory examination (principal); Z20.822 Contact with and (suspected) exposure to COVID-19

== ENCOUNTER 2021-08-10 12:20 | Day surgery (SDC) | payer MEDICARE ==
[~2021-08-10] VITALS: Ht 152.4 cm; Wt 82.1 kg
[~2021-08-10 12:20] MED LIST changes: +LIDOCAINE 2% 100MG/5ML SDV (FOR ANES.) As Ordered ONE; +NS 1,000 ML IV ONE; +OMEP-173 PO; -OMEP-218 PO; +propofoL 200 MG/20 ML VIAL As Ordered ONE
[2021-08-10 14:35] VITALS: BP 163/70
== END 2021-08-10 14:55 | disposition home or self-care (01) ==
LOC: M OPP 12:20
PROVIDERS: ATTEND Internal Medicine Gastroenterology
DX: K26.9 Duodenal ulcer, unspecified as acute or chronic, without hemorrhage or perforation (principal); K25.9 Gastric ulcer, unspecified as acute or chronic, without hemorrhage or perforation; R10.13 Epigastric pain; R93.3 Abnormal findings on diagnostic imaging of other parts of digestive tract; D64.9 Anemia, unspecified; Z79.82 Long term (current) use of aspirin; Z79.899 Other long term (current) drug therapy

== ENCOUNTER 2021-08-12 16:05 | Emergency (ER) | payer MEDICARE ==
[~2021-08-12] VITALS: Ht 152.4 cm; Wt 81.0 kg
[~2021-08-12 16:05] MED LIST changes: -CARA1TAB6 PO; -ISOVUE-370 76% 100ML VIAL ONE; -PEPC1TAB5 PO
[2021-08-13] MEDS ORDERED: GI COCKTAIL 50ML BTL(HYOSCYAMINE/MAALOX/LIDOCAINE VISCOUS)(1:3:1) PO ONE (02:05)
[2021-08-13] MEDS ORDERED: PERCOCET 5MG/325MG TAB PO ONE (02:50)
[2021-08-13] MEDS ORDERED: CARA1TAB6 PO (04:28)
[2021-08-13] MEDS ORDERED: PEPC1TAB5 PO (04:28)
[2021-08-13] MEDS ORDERED: FAMOTIDINE 20 MG TAB PO ONE (04:30)
[2021-08-13] MEDS ORDERED: SUCRALFATE 1 GM TAB PO ONE (04:30)
[2021-08-13 04:33] VITALS: BP 178/84
== END 2021-08-13 04:46 | disposition home or self-care (01) ==
LOC: M ED 16:05
DX: K27.9 Peptic ulcer, site unspecified, unspecified as acute or chronic, without hemorrhage or perforation (principal); D64.9 Anemia, unspecified; R10.9 Unspecified abdominal pain; R93.89 Abnormal findings on diagnostic imaging of other specified body structures; Z79.82 Long term (current) use of aspirin; Z79.899 Other long term (current) drug therapy
CPT/HCPCS: 36415; 74177; 80053; 85025; 99284; Q9967

== ENCOUNTER → 2021-08-12 | Outpatient (CLI) | payer MEDICARE ==
[~2021-08-12] MED LIST changes: +CARA1TAB6 PO; -LIDOCAINE 2% 100MG/5ML SDV (FOR ANES.) As Ordered ONE; -NS 1,000 ML IV ONE; -OMEP-173 PO; +OMEP-218 PO; +PEPC1TAB5 PO; -propofoL 200 MG/20 ML VIAL As Ordered ONE
[2021-08-12 09:08] LABS: BASO # 0.1 10^3/uL (0.0-0.2); BASO % 0.8 % (0.0-1.0); EOS # 0.4 10^3/uL (0.0-0.5); EOS % 4.8 % (0.0-3.0); HEMATOCRIT 31.1 % (36.0-47.0); HEMOGLOBIN 9.1 g/dl (12.0-15.5); LYMPH # 1.7 10^3/uL (1.5-5.0); LYMPH % 20.3 % (24.0-44.0); MEAN CORPUSCULAR HEMOGLOBIN 23.2 pg (27.0-33.0); MEAN CORPUSCULAR HGB CONC 29.3 g/dl (32.0-36.5); MEAN CORPUSCULAR VOLUME 79.3 fl (80.0-96.0); MONO # 0.6 10^3/uL (0.0-0.8); MONO % 7.4 % (2.0-8.0); NEUTROPHILS # 5.5 10^3/uL (1.5-8.5); NEUTROPHILS % 66.1 % (36.0-66.0); PLATELET COUNT, AUTOMATED 294 10^3/uL (150-450); RED BLOOD COUNT 3.92 10^6/uL (4.00-5.40); WHITE BLOOD COUNT 8.3 10^3/uL (4.0-10.0)
[2021-08-12 09:29] LABS: ALBUMIN 3.5 GM/DL (3.2-5.2); BILIRUBIN,TOTAL 0.4 MG/DL (0.2-1.0); CALCIUM LEVEL 9.3 MG/DL (8.8-10.2); CREATININE FOR GFR 1.36 MG/DL (0.55-1.30); GLOMERULAR FILTRATION RATE 40.7 (>39); POTASSIUM SERUM 5.5 MEQ/L (3.5-5.1); TOTAL PROTEIN 6.8 GM/DL (6.4-8.2)
== END ==
LOC: M LAB 08:33
PROVIDERS: ATTEND Internal Medicine Gastroenterology
DX: D64.9 Anemia, unspecified (principal); R10.9 Unspecified abdominal pain; R93.89 Abnormal findings on diagnostic imaging of other specified body structures

== ENCOUNTER → 2021-08-12 | Outpatient (CLI) | payer MEDICARE ==
[~2021-08-12] MED LIST changes: +ISOVUE-370 76% 100ML VIAL ONE; +OMEP-173 PO; -OMEP-218 PO
== END ==
LOC: M PLAIMG 12:19
PROVIDERS: ATTEND Internal Medicine Gastroenterology
DX: D64.9 Anemia, unspecified (principal); R10.9 Unspecified abdominal pain; R93.89 Abnormal findings on diagnostic imaging of other specified body structures

== ENCOUNTER → 2021-09-01 | Outpatient (CLI) | payer MEDICARE ==
[~2021-09-01] MED LIST changes: +CARA1TAB6 PO; -OMEP-173 PO; +OMEP-218 PO; +PEPC1TAB5 PO
[2021-09-01 08:51] LABS: HEMATOCRIT 33.2 % (36.0-47.0); HEMOGLOBIN 9.7 g/dl (12.0-15.5); MEAN CORPUSCULAR HEMOGLOBIN 23.5 pg (27.0-33.0); MEAN CORPUSCULAR HGB CONC 29.2 g/dl (32.0-36.5); MEAN CORPUSCULAR VOLUME 80.4 fl (80.0-96.0); PLATELET COUNT, AUTOMATED 309 10^3/uL (150-450); RED BLOOD COUNT 4.13 10^6/uL (4.00-5.40); WHITE BLOOD COUNT 6.9 10^3/uL (4.0-10.0)
[2021-09-01 09:23] LABS: ALBUMIN 3.6 GM/DL (3.2-5.2); BILIRUBIN,TOTAL 0.3 MG/DL (0.2-1.0); CREATININE FOR GFR 1.41 MG/DL (0.55-1.30); PERCENT SATURATION 7.1 % (13.2-45.0); POTASSIUM SERUM 5.3 MEQ/L (3.5-5.1); TOTAL PROTEIN 7.5 GM/DL (6.4-8.2)
[2021-09-01 10:11] LABS: HEMOGLOBIN A1c 5.8 %
== END ==
LOC: M LAB 08:15
PROVIDERS: ATTEND Family Medicine
DX: D64.9 Anemia, unspecified (principal)

== ENCOUNTER → 2021-10-10 | Outpatient (CLI) | payer MEDICARE ==
[~2021-10-10] MED LIST changes: +OMEP-173 PO; -OMEP-218 PO
[2021-10-10 10:12] LABS: HEMATOCRIT 32.7 % (36.0-47.0); HEMOGLOBIN 9.5 g/dl (12.0-15.5); MEAN CORPUSCULAR HEMOGLOBIN 24.1 pg (27.0-33.0); MEAN CORPUSCULAR HGB CONC 29.1 g/dl (32.0-36.5); MEAN CORPUSCULAR VOLUME 82.8 fl (80.0-96.0); PLATELET COUNT, AUTOMATED 267 10^3/uL (150-450); RED BLOOD COUNT 3.95 10^6/uL (4.00-5.40); WHITE BLOOD COUNT 7.8 10^3/uL (4.0-10.0)
== END ==
LOC: M LAB 09:23
PROVIDERS: ATTEND Family Medicine
DX: D64.9 Anemia, unspecified (principal); Z79.899 Other long term (current) drug therapy

== ENCOUNTER → 2021-10-24 | Outpatient (CLI) | payer MEDICARE | LOC: M RAD 07:09 | PROVIDERS: ATTEND Surgery | DX: K31.84 Gastroparesis (principal) | CPT/HCPCS: 78264; A9541 ==

== ENCOUNTER → 2021-12-13 | Outpatient (CLI) | payer MEDICARE ==
[~2021-12-13] MED LIST changes: -D31000TA2 PO; +VITA100093 PO
== END ==
LOC: M LAB 07:22
PROVIDERS: ATTEND Family Medicine
DX: E87.5 Hyperkalemia (principal)

== ENCOUNTER → 2021-12-15 | Outpatient (CLI) | payer MEDICARE ==
[2021-12-15 09:05] LABS: POTASSIUM SERUM 5.8 MEQ/L (3.5-5.1)
== END ==
LOC: M LAB 06:49
PROVIDERS: ATTEND Family Medicine
DX: I10 Essential (primary) hypertension (principal)

== ENCOUNTER → 2021-12-19 | Outpatient (CLI) | payer MEDICARE ==
[2021-12-19 11:11] LABS: POTASSIUM SERUM 6.2 MEQ/L (3.5-5.1)
== END ==
LOC: M LAB 09:08
PROVIDERS: ATTEND Family Medicine
DX: I10 Essential (primary) hypertension (principal)

== ENCOUNTER 2021-12-22 13:48 | Inpatient (IN) | payer MEDICARE ==
[~2021-12-22] VITALS: Ht 152.4 cm; Wt 81.0 kg
[~2021-12-22 13:48] MED LIST changes: -FAMO20TA PO; -FERR1TAB8 PO; -METO10TA2 PO; -OMEP40CA5 PO; -POTA1TAB14 PO; -SUCR1TA PO; -TIZA10TA PO
[2021-12-22 15:07] LABS: ALBUMIN 4.1 GM/DL (3.2-5.2); BILIRUBIN,TOTAL 0.5 MG/DL (0.2-1.0); CALCIUM LEVEL 9.1 MG/DL (8.8-10.2); CREATININE FOR GFR 2.74 MG/DL (0.55-1.30); GLOMERULAR FILTRATION RATE 18.1 (>39); POTASSIUM SERUM 5.5 MEQ/L (3.5-5.1); TOTAL PROTEIN 7.5 GM/DL (6.4-8.2)
[2021-12-22] MEDS ORDERED: NS 1,000 ML IV ONE (20:55)
[2021-12-22] MEDS ORDERED: ACETAMINOPHEN TAB 650MG DOSE (2X325MG) PO PRN (22:15)
[2021-12-22 23:44] LABS: RSV AMPLIFICATION NEGATIVE (NEGATIVE)
[2021-12-23 00:08] LABS: BASO # 0.1 10^3/uL (0.0-0.2); EOS # 0.4 10^3/uL (0.0-0.5); EOS % 4.3 % (0.0-3.0); HEMATOCRIT 31.1 % (36.0-47.0); HEMOGLOBIN 9.6 g/dl (12.0-15.5); LYMPH # 3.2 10^3/uL (1.5-5.0); LYMPH % 38.3 % (24.0-44.0); MEAN CORPUSCULAR HEMOGLOBIN 26.8 pg (27.0-33.0); MEAN CORPUSCULAR HGB CONC 30.9 g/dl (32.0-36.5); MEAN CORPUSCULAR VOLUME 86.9 fl (80.0-96.0); MONO # 0.8 10^3/uL (0.0-0.8); NEUTROPHILS # 3.6 10^3/uL (1.5-8.5); NEUTROPHILS % 43.1 % (36.0-66.0); PLATELET COUNT, AUTOMATED 248 10^3/uL (150-450); RED BLOOD COUNT 3.58 10^6/uL (4.00-5.40); WHITE BLOOD COUNT 8.2 10^3/uL (4.0-10.0)
[2021-12-23] MEDS ORDERED: POTA1TAB14 PO (00:35)
[2021-12-23] MEDS ORDERED: TIZA10TA PO (00:35)
[2021-12-23] MEDS ORDERED: GABA600T4 PO (00:35)
[2021-12-23] MEDS ORDERED: SUCR1TA PO (00:35)
[2021-12-23] MEDS ORDERED: NS 1,000 ML IV SCH (00:35)
[2021-12-23] MEDS ORDERED: METO10TA2 PO (00:35)
[2021-12-23] MEDS ORDERED: FAMO20TA PO (00:35)
[2021-12-23] MEDS ORDERED: OMEP40CA5 PO (00:35)
[2021-12-23] MEDS ORDERED: FERR1TAB8 PO (00:35)
[2021-12-23] MEDS ORDERED: HOME MED LIST COMPLETE! XX SCH (00:40)
[2021-12-23] MEDS ORDERED: MORPHINE 2 MG/ML 1ML VIAL IV PRN (00:50)
[2021-12-23 00:56] VITALS: BP 144/97
[2021-12-23] MEDS ORDERED: PILL CUTTER 1 EACH XX PRN (01:25)
[2021-12-23] MEDS ORDERED: traMADol 50 MG TAB PO PRN (04:30)
[2021-12-23 06:00] VITALS: BP 115/62
[2021-12-23 06:42] LABS: HEMOGLOBIN 10.1 g/dl (12.0-15.5); MEAN CORPUSCULAR HEMOGLOBIN 26.7 pg (27.0-33.0); MEAN CORPUSCULAR HGB CONC 30.6 g/dl (32.0-36.5); MEAN CORPUSCULAR VOLUME 87.3 fl (80.0-96.0); PLATELET COUNT, AUTOMATED 278 10^3/uL (150-450); RED BLOOD COUNT 3.78 10^6/uL (4.00-5.40); WHITE BLOOD COUNT 8.1 10^3/uL (4.0-10.0)
[2021-12-23 07:09] LABS: CALCIUM LEVEL 9.1 MG/DL (8.8-10.2); CREATININE FOR GFR 2.09 MG/DL (0.55-1.30); GLOMERULAR FILTRATION RATE 24.7 (>39)
[2021-12-23] MEDS: SUCRALFATE 1 GM TAB PO SCH ×3 (08:26→17:38)
[2021-12-23] MEDS: VITAMIN D 1,000 INTERNATIONAL UNITS TABLET PO SCH (08:26)
[2021-12-23] MEDS: CYANOCOBALAMIN 500 MCG TAB PO SCH (08:26)
[2021-12-23] MEDS: ATORVASTATIN 20 MG TAB PO SCH (08:27)
[2021-12-23] MEDS: METOPROLOL SUCC (TopROL XL) 50MG **XL** TAB PO SCH (08:27)
[2021-12-23] MEDS: FAMOTIDINE 20 MG TAB PO SCH (08:27)
[2021-12-23] MEDS: ASPIRIN 81MG ENTERIC TABLET PO SCH (08:27)
[2021-12-23] MEDS: FERROUS SULFATE 325MG TAB PO SCH ×2 (08:27→20:17)
[2021-12-23] MEDS ORDERED: PREVNAR 13 VACCINE SYRINGE IM ONE (09:00)
[2021-12-23] MEDS ORDERED: FUROSEMIDE 40MG/4ML VIAL (J1940) IV ONE (11:45)
[2021-12-23 14:00] VITALS: BP 131/63
[2021-12-23 16:52] LABS: CALCIUM LEVEL 8.9 MG/DL (8.8-10.2); CREATININE FOR GFR 1.79 MG/DL (0.55-1.30); GLOMERULAR FILTRATION RATE 29.6 (>39); POTASSIUM SERUM 5.2 MEQ/L (3.5-5.1)
[2021-12-23 20:00] VITALS: BP 136/62
[2021-12-24 06:00] VITALS: BP 135/69
[2021-12-24 06:29] LABS: BASO # 0.1 10^3/uL (0.0-0.2); BASO % 1.2 % (0.0-1.0); EOS # 0.4 10^3/uL (0.0-0.5); EOS % 5.8 % (0.0-3.0); HEMATOCRIT 33.2 % (36.0-47.0); HEMOGLOBIN 10.2 g/dl (12.0-15.5); LYMPH # 1.9 10^3/uL (1.5-5.0); LYMPH % 27.8 % (24.0-44.0); MEAN CORPUSCULAR HEMOGLOBIN 26.8 pg (27.0-33.0); MEAN CORPUSCULAR HGB CONC 30.7 g/dl (32.0-36.5); MEAN CORPUSCULAR VOLUME 87.1 fl (80.0-96.0); MONO # 0.7 10^3/uL (0.0-0.8); NEUTROPHILS # 3.7 10^3/uL (1.5-8.5); NEUTROPHILS % 53.5 % (36.0-66.0); PLATELET COUNT, AUTOMATED 257 10^3/uL (150-450); RED BLOOD COUNT 3.81 10^6/uL (4.00-5.40); WHITE BLOOD COUNT 6.9 10^3/uL (4.0-10.0)
[2021-12-24 06:59] LABS: CALCIUM LEVEL 9.3 MG/DL (8.8-10.2); CREATININE FOR GFR 1.69 MG/DL (0.55-1.30); GLOMERULAR FILTRATION RATE 31.6 (>39)
[2021-12-24] MEDS: ATORVASTATIN 20 MG TAB PO SCH (09:13)
[2021-12-24] MEDS: SUCRALFATE 1 GM TAB PO SCH ×2 (09:14→12:46)
[2021-12-24] MEDS: ASPIRIN 81MG ENTERIC TABLET PO SCH (09:14)
[2021-12-24] MEDS: CYANOCOBALAMIN 500 MCG TAB PO SCH (09:14)
[2021-12-24] MEDS: VITAMIN D 1,000 INTERNATIONAL UNITS TABLET PO SCH (09:14)
[2021-12-24] MEDS: FERROUS SULFATE 325MG TAB PO SCH (09:14)
[2021-12-24] MEDS: FAMOTIDINE 20 MG TAB PO SCH (09:15)
[2021-12-24 09:18] VITALS: BP 147/74
[2021-12-24] MEDS: METOPROLOL SUCC (TopROL XL) 50MG **XL** TAB PO SCH (09:18)
[2021-12-24] MEDS ORDERED: FUROSEMIDE 40MG/4ML VIAL (J1940) IV ONE (10:30)
[2021-12-24] MEDS ORDERED: AMLO1TAB24 PO (12:08)
== END 2021-12-24 13:23 | disposition home health service (06) | DRG 683 ==
LOC: M ED 13:48 → M ED INP 22:12 → M MSPAV 12-23 01:00
PROVIDERS: ADMIT Internal Medicine; ATTEND Internal Medicine Nephrology
DX: N17.9 Acute kidney failure, unspecified (principal); I13.0 Hypertensive heart and chronic kidney disease with heart failure and stage 1 through stage 4 chronic kidney disease, or unspecified chronic kidney disease; I50.30 Unspecified diastolic (congestive) heart failure; E78.5 Hyperlipidemia, unspecified; G89.29 Other chronic pain; M19.90 Unspecified osteoarthritis, unspecified site; N18.30 Chronic kidney disease, stage 3 unspecified; E66.9 Obesity, unspecified; E87.5 Hyperkalemia; Z66 Do not resuscitate; K31.84 Gastroparesis; D64.9 Anemia, unspecified; Z79.82 Long term (current) use of aspirin; Z79.899 Other long term (current) drug therapy; Z96.651 Presence of right artificial knee joint; Z68.34 Body mass index [BMI] 34.0-34.9, adult

== ENCOUNTER → 2021-12-22 | Outpatient (CLI) | payer MEDICARE ==
[~2021-12-22] MED LIST changes: +FAMO20TA PO; +FERR1TAB8 PO; +METO10TA2 PO; +OMEP40CA5 PO; +POTA1TAB14 PO; +SUCR1TA PO; +TIZA10TA PO
[2021-12-22 13:19] LABS: POTASSIUM SERUM 6.2 MEQ/L (3.5-5.1)
== END ==
LOC: M EKG 10:41
PROVIDERS: ATTEND Family Medicine
DX: I10 Essential (primary) hypertension (principal); E78.5 Hyperlipidemia, unspecified

== ENCOUNTER → 2021-12-28 | Outpatient (CLI) | payer MEDICARE ==
[~2021-12-28] MED LIST changes: +AMLO1TAB24 PO; +FAMO20TA PO; +FERR1TAB8 PO; +METO10TA2 PO; +OMEP40CA5 PO; +POTA1TAB14 PO; +SUCR1TA PO; +TIZA10TA PO
== END ==
LOC: M LABSMTC 09:06
PROVIDERS: ATTEND Anesthesiology
DX: Z01.818 Encounter for other preprocedural examination (principal); Z11.52 Encounter for screening for COVID-19

== ENCOUNTER → 2021-12-30 | Outpatient (CLI) | payer MEDICARE | LOC: M LAB 06:44 | PROVIDERS: ATTEND Family Medicine | DX: E87.5 Hyperkalemia (principal); I10 Essential (primary) hypertension ==

== ENCOUNTER → 2021-12-31 | Outpatient (CLI) | payer MEDICARE | LOC: M LAB 08:20 → M EKG 08:20 | PROVIDERS: ATTEND Family Medicine | DX: Z01.818 Encounter for other preprocedural examination (principal) ==

== ENCOUNTER → 2022-01-02 | Outpatient (CLI) | payer MEDICARE ==
[2022-01-02 10:33] LABS: POTASSIUM SERUM 5.4 MEQ/L (3.5-5.1)
== END ==
LOC: M LAB 09:34
PROVIDERS: ATTEND Family Medicine
DX: I10 Essential (primary) hypertension (principal)

== ENCOUNTER → 2022-01-02 | Outpatient (CLI) | payer MEDICARE ==
[~2022-01-02] VITALS: Ht 152.4 cm; Wt 76.2 kg
[~2022-01-02] MED LIST changes: +LIDOCAINE 1% MDV 20ML VIAL SQ PRN; +LR 1,000 ML IV ONE
[2022-01-02 10:47] VITALS: BP 183/74
== END ==
LOC: EDSTATUS 07:30 → M LAB 10:11 → M OR 10:11 → UNDOADMIN 10:11
PROVIDERS: ATTEND Surgery
DX: K31.5 Obstruction of duodenum (principal); Z53.09 Procedure and treatment not carried out because of other contraindication

== ENCOUNTER → 2022-01-09 | Outpatient (CLI) | payer MEDICARE ==
[~2022-01-09] MED LIST changes: -LIDOCAINE 1% MDV 20ML VIAL SQ PRN; -LR 1,000 ML IV ONE
[2022-01-09 08:09] LABS: ALBUMIN 3.5 GM/DL (3.2-5.2); BILIRUBIN,TOTAL 0.1 MG/DL (0.2-1.0); CALCIUM LEVEL 9.4 MG/DL (8.8-10.2); CREATININE FOR GFR 1.64 MG/DL (0.55-1.30); GLOMERULAR FILTRATION RATE 32.7 (>39); POTASSIUM SERUM 5.1 MEQ/L (3.5-5.1); TOTAL PROTEIN 6.7 GM/DL (6.4-8.2)
== END ==
LOC: M LAB 07:03
PROVIDERS: ATTEND Family Medicine
DX: I10 Essential (primary) hypertension (principal)

== ENCOUNTER → 2022-03-07 | Outpatient (CLI) | payer MEDICARE ==
[2022-03-07 10:22] LABS: HEMATOCRIT 34.4 % (36.0-47.0); HEMOGLOBIN 10.2 g/dl (12.0-15.5); MEAN CORPUSCULAR HEMOGLOBIN 24.5 pg (27.0-33.0); MEAN CORPUSCULAR HGB CONC 29.7 g/dl (32.0-36.5); MEAN CORPUSCULAR VOLUME 82.7 fl (80.0-96.0); PLATELET COUNT, AUTOMATED 341 10^3/uL (150-450); RED BLOOD COUNT 4.16 10^6/uL (4.00-5.40); WHITE BLOOD COUNT 8.2 10^3/uL (4.0-10.0)
[2022-03-07 10:32] LABS: INR 1.09; PROTHROMBIN TIME 14.5 SECONDS (12.7-14.5)
[2022-03-07 10:56] LABS: ALBUMIN 3.4 GM/DL (3.2-5.2); BILIRUBIN,TOTAL 0.3 MG/DL (0.2-1.0); CALCIUM LEVEL 8.9 MG/DL (8.8-10.2); CHOLESTEROL RISK RATIO 5.281 (<5); CREATININE FOR GFR 1.46 MG/DL (0.55-1.30); FREE T4 0.84 NG/DL (0.76-1.46); GLOMERULAR FILTRATION RATE 37.4 (>39); POTASSIUM SERUM 3.8 MEQ/L (3.5-5.1); THYROID STIMULATING HORMONE 1.04 uIU/ML (0.358-3.740)
[2022-03-07 11:12] LABS: TOTAL T3 55.5 NG/DL (60.0-181.0)
[2022-03-07 12:14] LABS: HEMOGLOBIN A1c 5.5 %
== END ==
LOC: M RAD 09:19
PROVIDERS: ATTEND Family Medicine
DX: I10 Essential (primary) hypertension (principal); Z79.01 Long term (current) use of anticoagulants

== ENCOUNTER → 2022-03-22 | Outpatient (CLI) | payer MEDICARE | LOC: M LABSMTC 09:03 | PROVIDERS: ATTEND Anesthesiology | DX: Z01.818 Encounter for other preprocedural examination (principal); Z11.52 Encounter for screening for COVID-19 ==

== ENCOUNTER 2022-03-27 05:58 | Inpatient (IN) | payer MEDICARE ==
[2022-03-27] VITALS (16 sets, daily range): BP systolic 131–160; BP diastolic 66–74; O2SAT 92
[~2022-03-27] VITALS: Ht 152.4 cm; Wt 77.6 kg
[2022-03-27] MEDS ORDERED: ERTAPENEM SODIUM 1 GM in NS MINI-BAG PLUS 50 ML IV ONE (06:00)
[2022-03-27] MEDS ORDERED: LR 1,000 ML IV SCH ×2 (06:10→10:15)
[2022-03-27] MEDS ORDERED: BUPIVACAINE/EPIN 0.25% 30 ML VIAL As Ordered ONE (07:12)
[2022-03-27] MEDS ORDERED: ONDANSETRON 4MG 2ML VIAL IV PRN ×2 (10:15→10:55)
[2022-03-27] MEDS ORDERED: oxyCODONE 5MG TAB PO PRN (10:15)
[2022-03-27] MEDS ORDERED: MORPHINE 4 MG/ML 1ML VIAL/SYRINGE IV PRN (10:55)
[2022-03-27] MEDS: fentaNYL 100 MCG/2 ML INJECTION IV PRN ×4 (10:58→11:30)
[2022-03-27] MEDS: NS 1,000 ML IV SCH ×2 (12:04→19:18)
[2022-03-27] MEDS: MORPHINE 2 MG/ML 1ML VIAL IV PRN ×3 (12:19→21:13)
[2022-03-27] MEDS ORDERED: AMLO1TAB24 PO (12:28)
[2022-03-27] MEDS ORDERED: TIZA10TA PO (12:28)
[2022-03-27] MEDS ORDERED: OMEP-173 PO (12:28)
[2022-03-27] MEDS: PIPERACILLIN/TAZOBACTAM SOD 3.375 GM in D5W MINI-BAG PLUS 50 ML IV SCH ×2 (17:35→23:37)
[2022-03-27] MEDS: PANTOPRAZOLE 40MG VIAL IV SCH (21:12)
[2022-03-27] MEDS: GABAPENTIN 300 MG CAP PO SCH (22:15)
[2022-03-27] MEDS: KETOROLAC 30 MG/ML 1ML VIAL IV PRN (23:37)
[2022-03-28 01:30] VITALS: BP 121/51
[2022-03-28] MEDS: MORPHINE 2 MG/ML 1ML VIAL IV PRN ×3 (01:56→17:58)
[2022-03-28 05:30] VITALS: BP 135/59
[2022-03-28 06:12] LABS: HEMATOCRIT 30.8 % (36.0-47.0); HEMOGLOBIN 9.5 g/dl (12.0-15.5); MEAN CORPUSCULAR HEMOGLOBIN 24.2 pg (27.0-33.0); MEAN CORPUSCULAR HGB CONC 30.8 g/dl (32.0-36.5); MEAN CORPUSCULAR VOLUME 78.6 fl (80.0-96.0); PLATELET COUNT, AUTOMATED 276 10^3/uL (150-450); RED BLOOD COUNT 3.92 10^6/uL (4.00-5.40); WHITE BLOOD COUNT 9.5 10^3/uL (4.0-10.0)
[2022-03-28] MEDS: NS 1,000 ML IV SCH ×3 (06:12→17:58)
[2022-03-28] MEDS: PIPERACILLIN/TAZOBACTAM SOD 3.375 GM in D5W MINI-BAG PLUS 50 ML IV SCH ×3 (06:12→17:58)
[2022-03-28] MEDS: KETOROLAC 30 MG/ML 1ML VIAL IV PRN ×2 (06:12→15:48)
[2022-03-28 07:13] LABS: CREATININE FOR GFR 1.37 MG/DL (0.55-1.30); GLOMERULAR FILTRATION RATE 40.2 (>39)
[2022-03-28 07:14] LABS: ALBUMIN 3.1 GM/DL (3.2-5.2); BILIRUBIN,TOTAL 0.5 MG/DL (0.2-1.0); CALCIUM LEVEL 8.7 MG/DL (8.8-10.2); POTASSIUM SERUM 3.8 MEQ/L (3.5-5.1); TOTAL PROTEIN 5.8 GM/DL (6.4-8.2)
[2022-03-28] MEDS: GABAPENTIN 300 MG CAP PO SCH ×3 (09:29→21:44)
[2022-03-28] MEDS: FUROSEMIDE 40 MG TAB PO SCH (09:29)
[2022-03-28] MEDS: ENOXAPARIN 40MG/0.4ML SYRINGE (J1650 PER 10MG) SC SCH (09:29)
[2022-03-28] MEDS: PANTOPRAZOLE 40MG VIAL IV SCH ×2 (09:29→21:44)
[2022-03-28] MEDS: METOPROLOL SUCC (TopROL XL) 50MG **XL** TAB PO SCH (09:29)
[2022-03-28] MEDS: amLODIPine 5 MG TAB PO SCH (09:29)
[2022-03-28 10:00] VITALS: BP 146/64
[2022-03-28 14:00] VITALS: BP 145/64
[2022-03-28 22:00] VITALS: BP 146/65
[2022-03-29] MEDS: NS 1,000 ML IV SCH (00:43)
[2022-03-29] MEDS: PIPERACILLIN/TAZOBACTAM SOD 3.375 GM in D5W MINI-BAG PLUS 50 ML IV SCH ×5 (00:43→23:25)
[2022-03-29 01:00] VITALS: O2SAT 90
[2022-03-29] MEDS: KETOROLAC 30 MG/ML 1ML VIAL IV PRN ×3 (01:56→18:06)
[2022-03-29] MEDS: MORPHINE 2 MG/ML 1ML VIAL IV PRN ×4 (03:15→22:14)
[2022-03-29 06:00] VITALS: BP 149/62
[2022-03-29 06:09] LABS: HEMATOCRIT 28.8 % (36.0-47.0); HEMOGLOBIN 8.6 g/dl (12.0-15.5); MEAN CORPUSCULAR HEMOGLOBIN 24.2 pg (27.0-33.0); MEAN CORPUSCULAR HGB CONC 29.9 g/dl (32.0-36.5); MEAN CORPUSCULAR VOLUME 80.9 fl (80.0-96.0); PLATELET COUNT, AUTOMATED 219 10^3/uL (150-450); RED BLOOD COUNT 3.56 10^6/uL (4.00-5.40); WHITE BLOOD COUNT 8.6 10^3/uL (4.0-10.0)
[2022-03-29 06:38] LABS: ALBUMIN 2.8 GM/DL (3.2-5.2); BILIRUBIN,TOTAL 0.4 MG/DL (0.2-1.0); CREATININE FOR GFR 1.36 MG/DL (0.55-1.30); GLOMERULAR FILTRATION RATE 40.6 (>39); POTASSIUM SERUM 3.2 MEQ/L (3.5-5.1); TOTAL PROTEIN 5.1 GM/DL (6.4-8.2)
[2022-03-29] MEDS: GABAPENTIN 300 MG CAP PO SCH ×3 (08:34→22:17)
[2022-03-29] MEDS: PANTOPRAZOLE 40MG VIAL IV SCH ×2 (08:34→22:17)
[2022-03-29] MEDS: ENOXAPARIN 40MG/0.4ML SYRINGE (J1650 PER 10MG) SC SCH (08:36)
[2022-03-29] MEDS: FUROSEMIDE 40 MG TAB PO SCH (08:36)
[2022-03-29] MEDS: METOPROLOL SUCC (TopROL XL) 50MG **XL** TAB PO SCH (08:37)
[2022-03-29] MEDS: amLODIPine 5 MG TAB PO SCH (08:37)
[2022-03-29] MEDS ORDERED: GASTROGRAFIN SOLUTION 30ML (Q9963) As Ordered ONE (09:38)
[2022-03-29] MEDS: KCL 20MEQ in NS 1000ML 1,000 ML IV SCH ×3 (09:44→22:28)
[2022-03-29 14:00] VITALS: BP 142/65
[2022-03-29 20:34] VITALS: BP 155/78
[2022-03-29 23:30] VITALS: O2SAT 82
[2022-03-30] MEDS: PIPERACILLIN/TAZOBACTAM SOD 3.375 GM in D5W MINI-BAG PLUS 50 ML IV SCH ×2 (05:28→11:43)
[2022-03-30] MEDS: KETOROLAC 30 MG/ML 1ML VIAL IV PRN ×2 (05:29→14:14)
[2022-03-30 06:00] VITALS: BP 141/67
[2022-03-30 06:21] LABS: HEMATOCRIT 31.8 % (36.0-47.0); HEMOGLOBIN 9.3 g/dl (12.0-15.5); MEAN CORPUSCULAR HGB CONC 29.2 g/dl (32.0-36.5); PLATELET COUNT, AUTOMATED 217 10^3/uL (150-450); RED BLOOD COUNT 3.88 10^6/uL (4.00-5.40); WHITE BLOOD COUNT 6.5 10^3/uL (4.0-10.0)
[2022-03-30 06:42] VITALS: O2SAT 96
[2022-03-30 06:56] LABS: ALBUMIN 2.8 GM/DL (3.2-5.2); BILIRUBIN,TOTAL 0.5 MG/DL (0.2-1.0); CALCIUM LEVEL 8.2 MG/DL (8.8-10.2); CREATININE FOR GFR 1.03 MG/DL (0.55-1.30); GLOMERULAR FILTRATION RATE 55.9 (>39); POTASSIUM SERUM 3.5 MEQ/L (3.5-5.1); TOTAL PROTEIN 5.6 GM/DL (6.4-8.2)
[2022-03-30] MEDS: GABAPENTIN 300 MG CAP PO SCH ×3 (08:45→20:54)
[2022-03-30] MEDS: ENOXAPARIN 40MG/0.4ML SYRINGE (J1650 PER 10MG) SC SCH (08:45)
[2022-03-30] MEDS: FUROSEMIDE 40 MG TAB PO SCH (08:45)
[2022-03-30] MEDS: PANTOPRAZOLE 40MG VIAL IV SCH ×2 (08:45→20:54)
[2022-03-30] MEDS: amLODIPine 5 MG TAB PO SCH (08:46)
[2022-03-30] MEDS: METOPROLOL SUCC (TopROL XL) 50MG **XL** TAB PO SCH (08:46)
[2022-03-30] MEDS: KCL 20MEQ in NS 1000ML 1,000 ML IV SCH ×2 (08:47→16:16)
[2022-03-30] MEDS: MORPHINE 2 MG/ML 1ML VIAL IV PRN ×3 (10:58→22:46)
[2022-03-30 14:00] VITALS: BP 164/76
[2022-03-30 22:00] VITALS: BP 144/76
[2022-03-30 22:10] VITALS: O2SAT 92
[2022-03-30 23:07] VITALS: BP 134/84
[2022-03-31] MEDS: KCL 20MEQ in NS 1000ML 1,000 ML IV SCH ×2 (01:18→08:45)
[2022-03-31] MEDS: MORPHINE 2 MG/ML 1ML VIAL IV PRN (04:58)
[2022-03-31 05:55] LABS: HEMATOCRIT 30.6 % (36.0-47.0); HEMOGLOBIN 8.9 g/dl (12.0-15.5); MEAN CORPUSCULAR HEMOGLOBIN 23.8 pg (27.0-33.0); MEAN CORPUSCULAR HGB CONC 29.1 g/dl (32.0-36.5); MEAN CORPUSCULAR VOLUME 81.8 fl (80.0-96.0); PLATELET COUNT, AUTOMATED 218 10^3/uL (150-450); RED BLOOD COUNT 3.74 10^6/uL (4.00-5.40); WHITE BLOOD COUNT 5.8 10^3/uL (4.0-10.0)
[2022-03-31 06:00] VITALS: BP 123/83
[2022-03-31 06:20] LABS: ALBUMIN 2.7 GM/DL (3.2-5.2); ALT/SGPT 10 U/L (12-78); BILIRUBIN,TOTAL 0.4 MG/DL (0.2-1.0); BLOOD UREA NITROGEN 12 MG/DL (7-18); CALCIUM LEVEL 8.6 MG/DL (8.8-10.2); CARBON DIOXIDE LEVEL 23 MEQ/L (21-32); CHLORIDE LEVEL 116 MEQ/L (98-107); CREATININE FOR GFR 0.76 MG/DL (0.55-1.30); GLOMERULAR FILTRATION RATE > 60.0 (>39); GLUCOSE, FASTING 87 MG/DL (70-100); POTASSIUM SERUM 3.7 MEQ/L (3.5-5.1); SODIUM LEVEL 148 MEQ/L (136-145); TOTAL PROTEIN 5.3 GM/DL (6.4-8.2)
[2022-03-31] MEDS: PANTOPRAZOLE 40MG VIAL IV SCH (09:00)
[2022-03-31] MEDS: GABAPENTIN 300 MG CAP PO SCH (09:21)
[2022-03-31] MEDS: ENOXAPARIN 40MG/0.4ML SYRINGE (J1650 PER 10MG) SC SCH (09:21)
[2022-03-31] MEDS: FUROSEMIDE 40 MG TAB PO SCH (09:24)
[2022-03-31 09:25] VITALS: BP 158/88
[2022-03-31] MEDS: METOPROLOL SUCC (TopROL XL) 50MG **XL** TAB PO SCH (09:25)
[2022-03-31] MEDS: amLODIPine 5 MG TAB PO SCH (09:25)
[2022-03-31] MEDS ORDERED: HYDR-3715 PO (09:35)
[2022-03-31] MEDS ORDERED: GABA-282 PO (09:35)
[2022-03-31] MEDS: KETOROLAC 30 MG/ML 1ML VIAL IV PRN (11:20)
[2022-03-31] MEDS ORDERED: NORCO, ANEXSIA 5/325MG TABLET (HYDROcodone/ACETAMINOPHEN) PO ONE (12:30)
== END 2022-03-31 12:36 | disposition home or self-care (01) | DRG 337 ==
LOC: M OR 05:58 → M MSPAV 12:07 → M MS5PR 03-30 22:54
PROVIDERS: ADMIT Surgery; ATTEND Surgery
PROC: 8E0W4CZ Robotic Assisted Procedure of Trunk Region, Percutaneous Endoscopic Approach (ICD-10-PCS; 2022-03-27)
PROC: 0DNU4ZZ Release Omentum, Percutaneous Endoscopic Approach (ICD-10-PCS; principal; 2022-03-27 07:30)
DX: K31.5 Obstruction of duodenum (principal); I12.9 Hypertensive chronic kidney disease with stage 1 through stage 4 chronic kidney disease, or unspecified chronic kidney disease; E78.5 Hyperlipidemia, unspecified; K66.0 Peritoneal adhesions (postprocedural) (postinfection); N18.30 Chronic kidney disease, stage 3 unspecified; M54.9 Dorsalgia, unspecified; Z90.49 Acquired absence of other specified parts of digestive tract; Z79.899 Other long term (current) drug therapy

== ENCOUNTER 2022-05-03 13:15 | Emergency (ER) | payer MEDICARE ==
[~2022-05-03] VITALS: Ht 152.4 cm; Wt 68.2 kg
[~2022-05-03 13:15] MED LIST changes: +GABA-282 PO; +HYDR-3715 PO
[2022-05-03] MEDS ORDERED: BOOSTRIX/ADACEL VACCINE (DIPHTH/PERTUSS/ACELL/TETANUS) 0.5ML SYR IM ONE (14:15)
[2022-05-03 15:49] VITALS: BP 152/65
== END 2022-05-03 15:54 | disposition home or self-care (01) ==
LOC: M ED 13:15 → EDBD 13:15 → M ED 15:54
DX: S00.83XA Contusion of other part of head, initial encounter (principal); S50.811A Abrasion of right forearm, initial encounter; W01.0XXA Fall on same level from slipping, tripping and stumbling without subsequent striking against object, initial encounter; Y92.410 Unspecified street and highway as the place of occurrence of the external cause; I10 Essential (primary) hypertension; I50.9 Heart failure, unspecified; N18.30 Chronic kidney disease, stage 3 unspecified; M54.50 Low back pain, unspecified; Z91.048 Other nonmedicinal substance allergy status; Z79.899 Other long term (current) drug therapy; Z79.82 Long term (current) use of aspirin

== ENCOUNTER → 2022-08-17 | Outpatient (CLI) | payer MEDICARE ==
[2022-08-17 08:58] LABS: HEMATOCRIT 31.2 % (36.0-47.0); MEAN CORPUSCULAR HEMOGLOBIN 21.1 pg (27.0-33.0); MEAN CORPUSCULAR HGB CONC 28.8 g/dl (32.0-36.5); MEAN CORPUSCULAR VOLUME 73.2 fl (80.0-96.0); PLATELET COUNT, AUTOMATED 394 10^3/uL (150-450); RED BLOOD COUNT 4.26 10^6/uL (4.00-5.40); WHITE BLOOD COUNT 11.8 10^3/uL (4.0-10.0)
[2022-08-17 09:01] LABS: APPEARANCE, URINE MANUAL HAZY (CLEAR); COLOR, URINE MANUAL YELLOW (YELLOW)
[2022-08-17 09:02] LABS: BILIRUBIN, URINE MANUAL NEGATIVE (NEGATIVE); BLOOD URINE MANUAL NEGATIVE (NEGATIVE); GLUCOSE, URINE (UA) MANUAL NEGATIVE (NEGATIVE); KETONE, URINE MANUAL NEGATIVE (NEGATIVE); LEUKOCYTE ESTERASE, URINE MAN POSITIVE (NEGATIVE); NITRITE, URINE MANUAL NEGATIVE (NEGATIVE); PROTEIN, URINE MANUAL NEGATIVE (NEGATIVE); UROBILINOGEN, URINE MANUAL NORMAL (NORMAL)
[2022-08-17 09:15] LABS: INR 1.03; PROTHROMBIN TIME 13.7 SECONDS (12.5-14.5)
[2022-08-17 09:16] LABS: BILIRUBIN,TOTAL 0.2 MG/DL (0.3-1.2); CALCIUM LEVEL 9.3 MG/DL (8.3-10.6); CHOLESTEROL RISK RATIO 4.24 (<5); CREATININE FOR GFR 1.41 MG/DL (0.55-1.30); GLOMERULAR FILTRATION RATE 38.9 (>39); HDL CHOLESTEROL 26.4 MG/DL (>40); POTASSIUM SERUM 4.2 MMOL/L (3.5-5.1); TOTAL PROTEIN 6.5 G/DL (5.7-8.2)
[2022-08-17 09:18] LABS: THYROID STIMULATING HORMONE 4.97 uIU/ML (0.55-4.78)
[2022-08-17 09:20] LABS: RBC, URINE NONE SEEN /hpf (0-3); SQUAMOUS EPITHELIAL CELL URINE SMALL AMOUNT /hpf (SMALL AMT); WBC, URINE TNTC /hpf (0-3)
[2022-08-17 09:21] LABS: BACTERIA, URINE LARGE AMOUNT; HYALINE CAST, URINE NONE SEEN /lpf (0-1)
[2022-08-17 09:39] LABS: HEMOGLOBIN A1c 5.2 % (4.0-6.0)
== END ==
LOC: M RAD 07:51
PROVIDERS: ATTEND Family Medicine
DX: Z01.818 Encounter for other preprocedural examination (principal); I10 Essential (primary) hypertension; Z79.01 Long term (current) use of anticoagulants

== ENCOUNTER → 2022-10-16 | Outpatient (CLI) | payer MEDICARE ==
[2022-10-16 09:59] LABS: APPEARANCE, URINE MANUAL HAZY (CLEAR); BILIRUBIN, URINE MANUAL NEGATIVE (NEGATIVE); BLOOD URINE MANUAL NEGATIVE (NEGATIVE); COLOR, URINE MANUAL YELLOW (YELLOW); GLUCOSE, URINE (UA) MANUAL NEGATIVE (NEGATIVE); KETONE, URINE MANUAL NEGATIVE (NEGATIVE); LEUKOCYTE ESTERASE, URINE MAN POSITIVE (NEGATIVE); NITRITE, URINE MANUAL NEGATIVE (NEGATIVE); PROTEIN, URINE MANUAL TRACE mg/dL (NEGATIVE); UROBILINOGEN, URINE MANUAL NORMAL (NORMAL)
[2022-10-16 10:04] LABS: HEMATOCRIT 28.8 % (36.0-47.0); HEMOGLOBIN 7.9 g/dl (12.0-15.5); MEAN CORPUSCULAR HEMOGLOBIN 20.1 pg (27.0-33.0); MEAN CORPUSCULAR HGB CONC 27.4 g/dl (32.0-36.5); MEAN CORPUSCULAR VOLUME 73.3 fl (80.0-96.0); PLATELET COUNT, AUTOMATED 297 10^3/uL (150-450); RED BLOOD COUNT 3.93 10^6/uL (4.00-5.40); WHITE BLOOD COUNT 9.6 10^3/uL (4.0-10.0)
[2022-10-16 10:08] LABS: BACTERIA, URINE LARGE AMOUNT; HYALINE CAST, URINE NONE SEEN /lpf (0-1); MUCUS, URINE SMALL AMOUNT (NEGATIVE); RBC, URINE NONE SEEN /hpf (0-3); SQUAMOUS EPITHELIAL CELL URINE MOD AMOUNT /hpf (SMALL AMT); WBC, URINE TNTC /hpf (0-3)
[2022-10-16 10:14] LABS: HEMOGLOBIN A1c 5.4 % (4.0-6.0)
[2022-10-16 10:15] LABS: INR 1.03; PROTHROMBIN TIME 13.7 SECONDS (12.5-14.5)
[2022-10-16 10:30] LABS: ALBUMIN 3.6 G/DL (3.2-5.2); ALKALINE PHOSPHATASE 107 U/L (46-116); ALT/SGPT 16 U/L (7.0-40); AST/SGOT < 8 U/L (<34); BILIRUBIN,TOTAL 0.3 MG/DL (0.3-1.2); BLOOD UREA NITROGEN 68 MG/DL (9-23); CALCIUM LEVEL 8.9 MG/DL (8.3-10.6); CARBON DIOXIDE LEVEL 19 MMOL/L (20-31); CHLORIDE LEVEL 115 MMOL/L (98-107); CHOLESTEROL LEVEL 102 MG/DL (<200); CHOLESTEROL RISK RATIO 3.79 (<5); CREATININE FOR GFR 1.62 MG/DL (0.55-1.30); GLOMERULAR FILTRATION RATE 33.2 (>39); GLUCOSE, FASTING 105 MG/DL (74-106); HDL CHOLESTEROL 26.9 MG/DL (>40); LDL CHOLESTEROL 44.7 MG/DL (<100); NON-HDL-C 75 MG/DL; POTASSIUM SERUM 5.8 MMOL/L (3.5-5.1); SODIUM LEVEL 141 MMOL/L (136-145); TOTAL PROTEIN 6.3 G/DL (5.7-8.2); TRIGLYCERIDES LEVEL 152 MG/DL (<150)
[2022-10-16 10:32] LABS: THYROID STIMULATING HORMONE 2.552 uIU/ML (0.55-4.78)
== END ==
LOC: M RAD 08:49
PROVIDERS: ATTEND Family Medicine
DX: I10 Essential (primary) hypertension (principal); D64.9 Anemia, unspecified; Z79.01 Long term (current) use of anticoagulants

== ENCOUNTER 2022-12-05 12:21 | Inpatient (IN) | payer MEDICARE ==
[~2022-12-05] VITALS: Ht 152.4 cm; Wt 66.7 kg
[~2022-12-05 12:21] MED LIST changes: -NORT10CA2 PO; -SODI650T PO; -SUCR1TAB56 PO
[2022-12-05] MEDS ORDERED: LISI40TA4 PO (12:54)
[2022-12-05] MEDS ORDERED: NORT10CA2 PO (12:54)
[2022-12-05] MEDS ORDERED: SUCR1TAB56 PO (12:54)
[2022-12-05 17:34] LABS: BASO # 0.1 10^3/uL (0.0-0.2); BASO % 0.8 % (0.0-1.0); EOS # 0.3 10^3/uL (0.0-0.5); EOS % 2.8 % (0.0-3.0); HEMATOCRIT 25.9 % (36.0-47.0); LYMPH # 3.3 10^3/uL (1.5-5.0); LYMPH % 30.6 % (24.0-44.0); MEAN CORPUSCULAR HEMOGLOBIN 19.4 pg (27.0-33.0); MEAN CORPUSCULAR VOLUME 71.7 fl (80.0-96.0); MONO # 0.9 10^3/uL (0.0-0.8); NEUTROPHILS # 6.1 10^3/uL (1.5-8.5); NEUTROPHILS % 56.7 % (36.0-66.0); PLATELET COUNT, AUTOMATED 368 10^3/uL (150-450); RED BLOOD COUNT 3.61 10^6/uL (4.00-5.40); WHITE BLOOD COUNT 10.8 10^3/uL (4.0-10.0)
[2022-12-05 17:43] LABS: CALCIUM LEVEL 8.5 MG/DL (8.3-10.6); CREATININE FOR GFR 2.19 MG/DL (0.55-1.30); GLOMERULAR FILTRATION RATE 23.3 (>39); POTASSIUM SERUM 5.1 MMOL/L (3.5-5.1)
[2022-12-05] MEDS ORDERED: ACETAMINOPHEN TAB 650MG DOSE (2X325MG) PO PRN (19:20)
[2022-12-05] MEDS ORDERED: GABA600T4 PO (19:22)
[2022-12-05] MEDS ORDERED: HOME MED LIST COMPLETE! XX SCH (19:25)
[2022-12-05 20:09] LABS: RSV AMPLIFICATION NEGATIVE (NEGATIVE)
[2022-12-05 20:10] VITALS: BP 129/62
[2022-12-05 20:25] VITALS: BP 117/56
[2022-12-05 21:11] VITALS: BP 126/59
[2022-12-05] MEDS: PANTOPRAZOLE 40MG VIAL IV SCH (21:58)
[2022-12-05 22:00] VITALS: BP_SYST 123; BP_SYST 156; BP_DIAS 50; BP_DIAS 71
[2022-12-05 23:15] VITALS: BP 125/53
[2022-12-05 23:30] VITALS: BP 125/55
[2022-12-06] VITALS (8 sets, daily range): BP systolic 116–153; BP diastolic 52–88
[2022-12-06 02:33] LABS: HEMOGLOBIN 10.3 g/dl (12.0-15.5)
[2022-12-06 06:45] LABS: HEMATOCRIT 35.6 % (36.0-47.0); HEMOGLOBIN 10.1 g/dl (12.0-15.5); MEAN CORPUSCULAR HEMOGLOBIN 22.1 pg (27.0-33.0); MEAN CORPUSCULAR HGB CONC 28.4 g/dl (32.0-36.5); MEAN CORPUSCULAR VOLUME 77.9 fl (80.0-96.0); RED BLOOD COUNT 4.57 10^6/uL (4.00-5.40); WHITE BLOOD COUNT 6.3 10^3/uL (4.0-10.0)
[2022-12-06 06:46] LABS: PLATELET COUNT, AUTOMATED 245 10^3/uL (150-450)
[2022-12-06 06:53] LABS: CALCIUM LEVEL 8.5 MG/DL (8.3-10.6); CREATININE FOR GFR 1.96 MG/DL (0.55-1.30); GLOMERULAR FILTRATION RATE 26.5 (>39); POTASSIUM SERUM 4.8 MMOL/L (3.5-5.1)
[2022-12-06] MEDS: PANTOPRAZOLE 40MG VIAL IV SCH ×2 (08:57→19:51)
[2022-12-06] MEDS: VITAMIN D 1,000 INTERNATIONAL UNITS TABLET PO SCH (08:57)
[2022-12-06] MEDS: METOPROLOL SUCC (TopROL XL) 50MG **XL** TAB PO SCH (08:57)
[2022-12-06] MEDS: ATORVASTATIN 20 MG TAB PO SCH (08:57)
[2022-12-06] MEDS: NORTRIPTYLINE 10 MG CAP PO SCH (08:57)
[2022-12-06] MEDS: FERROUS SULFATE 325MG TAB PO SCH ×2 (08:58→19:50)
[2022-12-06] MEDS: amLODIPine 5 MG TAB PO SCH (08:58)
[2022-12-06] MEDS: CYANOCOBALAMIN 500 MCG TAB PO SCH (08:58)
[2022-12-06] MEDS: SUCRALFATE 1 GM TAB PO SCH ×3 (08:58→19:50)
[2022-12-06] MEDS: GABAPENTIN 300 MG CAP PO SCH (08:58)
[2022-12-06 09:02] LABS: VENOUS BASE EXCESS -12.1 (-2.0-2.0); VENOUS HCO3 14.6 MEQ/L (23.0-27.0); VENOUS O2 SATURATION 98.6 % (60.0-80.0); VENOUS PARTIAL PRESSURE CO2 35.9 mmHg (38.0-50.0); VENOUS PARTIAL PRESSURE O2 163.6 mmHg (30.0-50.0); VENOUS PH 7.226 UNITS (7.330-7.430); VENOUS TOTAL CO2 15.7 MEQ/L (24.0-28.0)
[2022-12-06 11:09] LABS: APPEARANCE, URINE CLEAR (CLEAR); BACTERIA, URINE AUTO 1+ (NEGATIVE); BILIRUBIN, URINE AUTO NEGATIVE (NEGATIVE); BLOOD, URINE BLOOD NEGATIVE (NEGATIVE); COLOR, URINE YELLOW (YELLOW); GLUCOSE, URINE (UA) AUTO NEGATIVE (NEGATIVE); KETONE, URINE AUTO NEGATIVE (NEGATIVE); LEUKOCYTE ESTERASE, URINE AUTO NEGATIVE (NEGATIVE); MUCUS, URINE SMALL (NEGATIVE); NITRITE, URINE AUTO POSITIVE (NEGATIVE); PROTEIN, URINE AUTO NEGATIVE (NEGATIVE); RBC, URINE AUTO 1 /HPF (0-3); SPECIFIC GRAVITY URINE AUTO 1.012 (1.002-1.035); SQUAMOUS EPITHELIAL CELL UR AU 0 /HPF (0-6); UROBILINOGEN, URINE AUTO 0.2 mg/dL (0.0-2.0); WBC, URINE AUTO 2 /HPF (0-3)
[2022-12-06] MEDS ORDERED: SODIUM BICARBONATE 325 MG TAB PO SCH ×3 (11:10→21:00)
[2022-12-06 11:24] LABS: ABG BASE EXCESS -10.9 (-2.0-2.0); ABG O2 SATURATION 97.5 % (95.0-99.0); ABG PARTIAL PRESSURE CO2 28.3 mmHg (35.0-45.0); ABG PARTIAL PRESSURE O2 108.3 mmHg (75.0-100.0); ABG STANDARD HCO3 15.8 MEQ/L (22.0-26.0); ABG TOTAL CO2 14.9 MEQ/L (23.0-31.0); ABG pH (ARTERIAL) 7.313 UNITS (7.350-7.450)
[2022-12-06 11:28] LABS: CHLORIDE,RANDOM URINE 92 MMOL/L; SODIUM,RANDOM URINE 105 MMOL/L
[2022-12-06] MEDS: NS 1,000 ML IV SCH ×2 (11:35→23:47)
[2022-12-06 12:10] LABS: HEMATOCRIT 35.6 % (36.0-47.0); HEMOGLOBIN 10.5 g/dl (12.0-15.5)
[2022-12-06] MEDS ORDERED: SODIUM BICARBONATE 325 MG TAB PO ONE (12:10)
[2022-12-06 12:32] LABS: PERCENT SATURATION 57.9 % (13.2-45.0)
[2022-12-06 12:33] LABS: CALCIUM LEVEL 8.7 MG/DL (8.3-10.6); CREATININE FOR GFR 1.82 MG/DL (0.55-1.30); GLOMERULAR FILTRATION RATE 28.9 (>39); POTASSIUM SERUM 4.7 MMOL/L (3.5-5.1)
[2022-12-06 12:37] LABS: FERRITIN 6.5 NG/ML (7.3-270.7); FOLATE 18.51 NG/ML (>5.4)
[2022-12-06 18:33] LABS: HEMATOCRIT 36.5 % (36.0-47.0); HEMOGLOBIN 10.8 g/dl (12.0-15.5)
[2022-12-06] MEDS ORDERED: tiZANidine 4 MG TAB PO SCH (21:00)
[2022-12-07 04:58] VITALS: BP 117/67
[2022-12-07 06:35] LABS: BASO # 0.1 10^3/uL (0.0-0.2); BASO % 0.9 % (0.0-1.0); EOS # 0.2 10^3/uL (0.0-0.5); EOS % 3.5 % (0.0-3.0); HEMATOCRIT 32.7 % (36.0-47.0); HEMOGLOBIN 9.6 g/dl (12.0-15.5); LYMPH # 1.8 10^3/uL (1.5-5.0); LYMPH % 27.3 % (24.0-44.0); MEAN CORPUSCULAR HEMOGLOBIN 22.4 pg (27.0-33.0); MEAN CORPUSCULAR HGB CONC 29.4 g/dl (32.0-36.5); MEAN CORPUSCULAR VOLUME 76.4 fl (80.0-96.0); MONO # 0.6 10^3/uL (0.0-0.8); MONO % 9.2 % (2.0-8.0); NEUTROPHILS # 3.8 10^3/uL (1.5-8.5); NEUTROPHILS % 57.9 % (36.0-66.0); PLATELET COUNT, AUTOMATED 262 10^3/uL (150-450); RED BLOOD COUNT 4.28 10^6/uL (4.00-5.40); WHITE BLOOD COUNT 6.5 10^3/uL (4.0-10.0)
[2022-12-07 07:00] LABS: CALCIUM LEVEL 8.4 MG/DL (8.3-10.6); CREATININE FOR GFR 1.36 MG/DL (0.55-1.30); GLOMERULAR FILTRATION RATE 40.5 (>39); MAGNESIUM LEVEL 1.8 MG/DL (1.8-2.4); POTASSIUM SERUM 4.5 MMOL/L (3.5-5.1)
[2022-12-07] MEDS: PANTOPRAZOLE 40MG VIAL IV SCH (08:51)
[2022-12-07 08:52] VITALS: BP 117/67
[2022-12-07] MEDS: SUCRALFATE 1 GM TAB PO SCH (08:52)
[2022-12-07] MEDS: CYANOCOBALAMIN 500 MCG TAB PO SCH (08:52)
[2022-12-07] MEDS: VITAMIN D 1,000 INTERNATIONAL UNITS TABLET PO SCH (08:52)
[2022-12-07] MEDS: NORTRIPTYLINE 10 MG CAP PO SCH (08:52)
[2022-12-07] MEDS: amLODIPine 5 MG TAB PO SCH (08:52)
[2022-12-07] MEDS: METOPROLOL SUCC (TopROL XL) 50MG **XL** TAB PO SCH (08:52)
[2022-12-07] MEDS: ATORVASTATIN 20 MG TAB PO SCH (08:53)
[2022-12-07] MEDS: FERROUS SULFATE 325MG TAB PO SCH (08:53)
[2022-12-07] MEDS: GABAPENTIN 300 MG CAP PO SCH (08:53)
[2022-12-07 09:10] LABS: ABG BASE EXCESS -8.9 (-2.0-2.0); ABG HCO3 16.3 MEQ/L (22.0-26.0); ABG O2 SATURATION 96.6 % (95.0-99.0); ABG PARTIAL PRESSURE CO2 32.5 mmHg (35.0-45.0); ABG PARTIAL PRESSURE O2 92.8 mmHg (75.0-100.0); ABG STANDARD HCO3 17.3 MEQ/L (22.0-26.0); ABG TOTAL CO2 17.3 MEQ/L (23.0-31.0); ABG pH (ARTERIAL) 7.317 UNITS (7.350-7.450)
[2022-12-07] MEDS ORDERED: SODI650T PO (10:24)
[2022-12-07 12:31] LABS: HEMATOCRIT 33.4 % (36.0-47.0); HEMOGLOBIN 9.8 g/dl (12.0-15.5)
== END 2022-12-07 13:14 | disposition home health service (06) | DRG 812 ==
LOC: M ED 12:21 → M ED INP 19:16 → M MSPAV 20:33
PROVIDERS: ADMIT Family Medicine; ATTEND Internal Medicine
PROC: 30233N1 Transfusion of Nonautologous Red Blood Cells into Peripheral Vein, Percutaneous Approach (ICD-10-PCS; principal; 2022-12-05)
DX: D62 Acute posthemorrhagic anemia (principal); I13.0 Hypertensive heart and chronic kidney disease with heart failure and stage 1 through stage 4 chronic kidney disease, or unspecified chronic kidney disease; N17.9 Acute kidney failure, unspecified; E87.20 Acidosis, unspecified; R53.83 Other fatigue; N18.30 Chronic kidney disease, stage 3 unspecified; E78.5 Hyperlipidemia, unspecified; K21.9 Gastro-esophageal reflux disease without esophagitis; M19.90 Unspecified osteoarthritis, unspecified site; I50.9 Heart failure, unspecified; Z96.653 Presence of artificial knee joint, bilateral; Z90.49 Acquired absence of other specified parts of digestive tract; T39.395A Adverse effect of other nonsteroidal anti-inflammatory drugs [NSAID], initial encounter; Z66 Do not resuscitate; Z79.82 Long term (current) use of aspirin; Z79.899 Other long term (current) drug therapy; D63.1 Anemia in chronic kidney disease; D50.9 Iron deficiency anemia, unspecified; Z98.0 Intestinal bypass and anastomosis status; Z91.048 Other nonmedicinal substance allergy status

== ENCOUNTER → 2022-12-05 | Outpatient (CLI) | payer MEDICARE ==
[~2022-12-05] MED LIST changes: +NORT10CA2 PO; +SODI650T PO; +SUCR1TAB56 PO
[2022-12-05 08:24] LABS: MEAN CORPUSCULAR HEMOGLOBIN 19.4 pg (27.0-33.0); MEAN CORPUSCULAR HGB CONC 26.9 g/dl (32.0-36.5); MEAN CORPUSCULAR VOLUME 72.2 fl (80.0-96.0); PLATELET COUNT, AUTOMATED 332 10^3/uL (150-450); RED BLOOD COUNT 3.35 10^6/uL (4.00-5.40); WHITE BLOOD COUNT 8.8 10^3/uL (4.0-10.0)
[2022-12-05 08:30] LABS: HEMATOCRIT 24.2 % (36.0-47.0); HEMOGLOBIN 6.5 g/dl (12.0-15.5)
[2022-12-05 08:58] LABS: ALBUMIN 3.5 G/DL (3.2-5.2); ALKALINE PHOSPHATASE 91 U/L (46-116); ALT/SGPT 18 U/L (7.0-40); AST/SGOT 14 U/L (<34); BILIRUBIN,TOTAL < 0.2 MG/DL (0.3-1.2); BLOOD UREA NITROGEN 80 MG/DL (9-23); CALCIUM LEVEL 8.6 MG/DL (8.3-10.6); CARBON DIOXIDE LEVEL 14 MMOL/L (20-31); CHLORIDE LEVEL 114 MMOL/L (98-107); GLOMERULAR FILTRATION RATE 23.2 (>39); GLUCOSE, FASTING 87 MG/DL (74-106); SODIUM LEVEL 141 MMOL/L (136-145); TOTAL PROTEIN 6.2 G/DL (5.7-8.2)
[2022-12-05 09:00] LABS: THYROID STIMULATING HORMONE 4.333 uIU/ML (0.55-4.78)
== END ==
LOC: M LAB 07:20
PROVIDERS: ATTEND Family Medicine
DX: D64.9 Anemia, unspecified (principal); R53.83 Other fatigue; E03.9 Hypothyroidism, unspecified

== ENCOUNTER 2023-02-14 11:18 | Day surgery (SDC) | payer MEDICARE ==
[~2023-02-14] VITALS: Ht 152.4 cm; Wt 65.2 kg
[~2023-02-14 11:18] MED LIST changes: +NORT10CA2 PO; +NS 1,000 ML IV ONE; +POTA-298 PO; -POTA1TAB14 PO; +SODI650T PO; +SUCR1TAB56 PO
[2023-02-14] MEDS ORDERED: LIDOCAINE 2% 100MG/5ML SDV (FOR ANES.) As Ordered ONE (13:01)
[2023-02-14] MEDS ORDERED: propofoL 200 MG/20 ML VIAL As Ordered ONE (13:01)
[2023-02-14 13:56] VITALS: TEMP 97.6
[2023-02-14 14:17] VITALS: BP 127/60; O2SAT 100
== END 2023-02-14 14:23 | disposition home or self-care (01) ==
LOC: M OPP 11:18
PROVIDERS: ATTEND Internal Medicine Gastroenterology
DX: D50.9 Iron deficiency anemia, unspecified (principal); K64.0 First degree hemorrhoids; K57.30 Diverticulosis of large intestine without perforation or abscess without bleeding; Z98.0 Intestinal bypass and anastomosis status; I10 Essential (primary) hypertension; E78.5 Hyperlipidemia, unspecified; R60.0 Localized edema; Z96.653 Presence of artificial knee joint, bilateral; Z91.09 Other allergy status, other than to drugs and biological substances; Z79.82 Long term (current) use of aspirin; Z79.899 Other long term (current) drug therapy